=== PATIENT | male | born 1950 | race Caucasian/White ===

== ENCOUNTER 2018-01-14 06:11 | Observation (INO) ==
[2018-01-14] MEDS ORDERED: Aspirin 81 MG TAB.CHEW PO STA (06:33)
--- NOTE | 2018-01-14 06:37 | Emergency Department Note ---
Disposition Clinical Impression: Chest pain, rule out acute myocardial infarction Disposition: Admitted As Inpatient Condition: Fair Referrals: Michael Ramírez MD [Primary Care Provider] - Forms: ED Satisfaction Letter Time of Disposition: 07:23 Chest Pain HPI - General Chief Complaint: ED Chest Pain Stated Complaint: chest pain Time Seen by Provider: 01/14/18 06:19 Source: patient, EMS Mode of arrival: EMS Limitations: no limitations Vital Signs Reviewed: Yes Nursing Notes Reviewed: Yes - History of Present Illness HPI Narrative: Nontoxic-appearing 67-year-old male with a history of diabetes, hyperlipidemia, hypertension, and implanted AICD presents by EMS for evaluation of right sided chest pain that began approximately 11:00 PM yesterday evening. The patient states "I been over to pick something up and got a really sharp pain in my chest ". He states that this pain radiated into the right shoulder, right upper extremity, and right side of his neck. The episode was brief however he states it occurred several additional times throughout the night. He states that each time, it was elicited by exertion while he was doing "my chores". He does state that although his chest pain and right upper extremity pain has resolved, he still has a dull ache in the right side of his neck. This is not worsened with movement or palpation. It is not reproduced with movement or palpation. He does complain of some slight associated dyspnea but denies any associated cough, nausea, vomiting, or diaphoresis. He denies any pain with inspiration or hemoptysis. He denies any fever or chills. Pt complaint: chest pain Onset (ago): hour(s) Duration: other (Nearly resolved) Pain Location: right chest Severity scale (1-10): 2 Quality: aching, dull Pain Radiation: RUE, neck Improves with: nothing Worsens with: nothing Associated symptoms: Reports: dyspnea. Denies: nausea, vomiting, diaphoresis, fever, cough Treatments prior to arrival chest pain: aspirin (81 mg at home prior to EMS arrival.) - Related Data Home Medications Medication Instructions Recorded Confirmed Albuterol Sulfate [Albuterol 2 puff IH Q4HR PRN 12/03/14 10/14/15 Inhaler] Fluticasone Propionate [Flovent 1 puff IH BID 12/03/14 10/14/15 Hfa] Hydrocodone/Acetaminophen [Cromwell 1 tab PO Q6H PRN 12/03/14 10/14/15 5-325 Tablet] Metformin [Glucophage] 1,000 mg PO BID 12/03/14 10/14/15 Potassium Chloride 10 meq PO DAILY 01/31/15 10/14/15 Spironolactone [Aldactone] 25 mg PO DAILY 01/31/15 10/14/15 Atorvastatin [Lipitor] 20 mg PO HS 10/14/15 10/14/15 Gabapentin [Neurontin] 200 mg PO TID 10/14/15 10/14/15 Metoprolol XL (24 HR) Succ [Toprol 25 mg PO DAILY 10/14/15 10/14/15 XL] Triamterene/Hydrochlorothiazid 1 each PO DAILY 10/14/15 10/14/15 [Dyazide 37.5-25 Capsule] Previous Rx's Medication Instructions Recorded Aspirin 81 mg PO DAILY tab.chew 12/09/14 Furosemide [Lasix] 40 mg PO BID #60 tab 12/09/14 Lisinopril [Zestril] 2.5 mg PO DAILY #30 tablet 12/09/14 Cyclobenzaprine [Flexeril] 10 mg PO HS PRN #20 tablet 07/10/15 Magnesium Oxide [Magnesium] 400 mg PO DAILY #30 tablet 01/10/17 Doxycycline 100 mg PO BID #10 capsule 05/21/17 Allergies Allergy/AdvReac Type Severity Reaction Status Date / Time No Known Allergies Allergy Verified 05/21/17 14:58 All systems ED: reviewed and negative except as stated. Review of Systems: As Per HPI Constitutional: Denies: fever, chills, weakness, weight change Eyes: Denies: eye pain, eye discharge, vision change ENT ED: Denies: ear pain, throat pain, dental pain, hearing loss, epistaxis, congestion, dysphagia Cardiovascular: Reports: as per HPI, chest pain. Denies: palpitations, dyspnea on exertion, edema, syncope Respiratory: Reports: as per HPI, dyspnea. Denies: cough, wheezes, hemoptysis, stridor, sputum production Gastrointestinal: Denies: abdominal pain, nausea, vomiting, diarrhea, constipation, hematemesis, melena, hematochezia Genitourinary: Denies: urgency, dysuria, frequency, hematuria Musculoskeletal: Denies: back pain, neck pain, arthralgia, myalgia Integumentary: Denies: rash, abrasion, lesions Neurological: Denies: headache, weakness, numbness, paresthesias, confusion, abnormal gait, vertigo Psychiatric: Denies: anxiety, depression, suicidal thoughts, homicidal thoughts , auditory hallucinations, visual hallucinations Endocrine: Denies: fatigue Hematological/Lymphatic: Denies: easy bleeding, easy bruising Allergic/Immunologic: Denies: facial swelling, urticaria Chest Pain PMH - Past Medical History Medical history: Reports: cardiomyopathy, COPD, coronary artery disease, diabetes, hypertension, other Surgical history: Reports: pacemaker/AICD Psychiatric history: Reports: no psych history - Social History Smoking Status: Current every day smoker Alcohol use: Reports: none Drug use: Reports: none Physical Exam - General Limitations: no limitations General appearance: alert - Head Head exam: atraumatic, normocephalic, normal inspection - Eye Eye exam: Present: normal appearance, PERRL, EOMI. Absent: nystagmus - ENT ENT exam: mucous membranes moist - Neck Neck exam: Present: normal inspection, full ROM, trachea midline. Absent: tenderness - Chest Chest inspection: Present: normal inspection, symmetric chest wall rise. Absent : tenderness - Respiratory Respiratory exam: Present: wheezes (Faint expiratory wheezes noted). Absent: respiratory distress, stridor, accessory muscle use, prolonged expiratory phase - Cardiovascular Cardiovascular exam: Present: regular rate, normal rhythm, normal heart sounds - Abdominal Exam Abdominal exam: Present: soft, Non-Tender, normal bowel sounds - Extremities Exam Extremities exam: Present: normal inspection, full ROM. Absent: tenderness, pedal edema - Neurological Exam Neurological exam: Present: alert, oriented X3 - Psychiatric Psychiatric exam: Present: normal affect, normal mood - Skin Skin exam: Present: warm, dry, intact, normal color. Absent: rash Course - Reevaluation(s) Reevaluation #1: The patient states significant improvement in the residual dull ache in the right side of his neck after the administration of a single nitroglycerin. Additional doses of the nitroglycerin trial were withheld due to soft systolic readings in the 110s. Although the patient stated that the pain was elicited each time by ending over, I have concerns that this is not musculoskeletal in nature, especially given his prior medical history and improvement of his right- sided neck pain with nitroglycerin. He will be admitted to the hospitalist service for ACS rule out. The patient is in agreement with this plan. Time: 07:21 - Consultations Consultation #1: The patient has been accepted by the hospitalist for further observation, workup , and management. Time: 07:32 Vital Signs Temperature 98.6 F 01/14/18 06:16 Pulse Rate 65 01/14/18 06:16 Respiratory Rate 24 01/14/18 06:16 Blood Pressure 148/76 01/14/18 06:16 O2 Sat by Pulse Oximetry 99 01/14/18 06:16 Temperature 98.6 F 01/14/18 06:16 Pulse Rate 60 01/14/18 07:12 Respiratory Rate 18 01/14/18 07:12 Blood Pressure 118/63 01/14/18 07:12 O2 Sat by Pulse Oximetry 97 01/14/18 07:12 Oxygen Delivery Oxygen Delivery Room Air Chest Pain - Medical Records Medical records reviewed: Yes I reviewed the patient's medical records. - Lab Data Lab results reviewed: Yes I reviewed the patient's lab results. Lab results narrative: Lab Results 01/14/18 01/14/18 01/14/18 Range/Units 06:23 06:23 06:23 WBC 10.6 (4.3-11.1) K/mcL RBC 4.16 L (4.19-5.50) M/mcL Hgb 13.5 (12.9-16.9) g/dL Hct 41.7 (37.5-50.1) % MCV 100.2 H (83.0-100.0) fL MCH 32.5 (28.0-33.3) pg MCHC 32.4 (31.6-35.5) g/dL RDW 13.7 (11.5-14.5) % Plt Count 318 (140-400) K/mcL MPV 10.2 (9.4-12.4) fL Immature Gran % 0.7 (0-4) % Seg Neutrophils % 75.9 % Lymphocytes % 13.3 % Monocytes % 6.4 % Eosinophils % 3.2 % Basophils % 0.5 % Neutrophils # 8.1 (1.6-8.9) K/mcL Lymphocytes # 1.4 (0.6-4.6) K/mcL Monocytes # 0.7 (0.0-1.3) K/mcL Eosinophils # 0.3 (0.0-0.6) K/mcL Basophils # 0.1 (0.0-0.2) K/mcL PT 11.6 (9.4-12.1) Seconds INR 1.0 APTT 32.1 (26.0-36.0) Seconds Sodium 142 (136-145) mEq/L Potassium 4.1 (3.5-5.1) mEq/L Chloride 110 H (98-107) mEq/L Carbon Dioxide 25 (23-29) mEq/L BUN 19 (8-23) mg/dL Creatinine 1.18 (0.70-1.30) mg/dL Est GFR ( Amer) > 60 (> 60) Est GFR (Non-Af Amer) > 60 (> 60) BUN/Creatinine Ratio 16 (6-26) Glucose 126 H (70-105) mg/dL Calculated Osmolality 298 (280-300) Calcium 8.9 (8.6-10.3) mg/dL Troponin I < 0.03 (< 0.04) ng/mL Result diagrams: 01/14/18 06:23 01/14/18 06:23 Lab Results 01/14/18 01/14/18 01/14/18 Range/Units 06:23 06:23 06:23 WBC 10.6 (4.3-11.1) K/mcL RBC 4.16 L (4.19-5.50) M/mcL Hgb 13.5 (12.9-16.9) g/dL Hct 41.7 (37.5-50.1) % MCV 100.2 H (83.0-100.0) fL MCH 32.5 (28.0-33.3) pg MCHC 32.4 (31.6-35.5) g/dL RDW 13.7 (11.5-14.5) % Plt Count 318 (140-400) K/mcL MPV 10.2 (9.4-12.4) fL Immature Gran % 0.7 (0-4) % Seg Neutrophils % 75.9 % Lymphocytes % 13.3 % Monocytes % 6.4 % Eosinophils % 3.2 % Basophils % 0.5 % Neutrophils # 8.1 (1.6-8.9) K/mcL Lymphocytes # 1.4 (0.6-4.6) K/mcL Monocytes # 0.7 (0.0-1.3) K/mcL Eosinophils # 0.3 (0.0-0.6) K/mcL Basophils # 0.1 (0.0-0.2) K/mcL PT 11.6 (9.4-12.1) Seconds INR 1.0 APTT 32.1 (26.0-36.0) Seconds Sodium 142 (136-145) mEq/L Potassium 4.1 (3.5-5.1) mEq/L Chloride 110 H (98-107) mEq/L Carbon Dioxide 25 (23-29) mEq/L BUN 19 (8-23) mg/dL Creatinine 1.18 (0.70-1.30) mg/dL Est GFR ( Amer) > 60 (> 60) Est GFR (Non-Af Amer) > 60 (> 60) BUN/Creatinine Ratio 16 (6-26) Glucose 126 H (70-105) mg/dL Calculated Osmolality 298 (280-300) Calcium 8.9 (8.6-10.3) mg/dL Troponin I < 0.03 (< 0.04) ng/mL - Radiology Data Radiology results reviewed: Yes I reviewed the patient's radiology results. Chest X-Ray 01/14/18 06:20 IMPRESSION: No acute cardiopulmonary disease. D/ / Ankit Doan MD / Ankit Doan MD Interpreting Provider: Ankit Doan MD - EKG Data EKG attestation: Yes I reviewed and interpreted this EKG. EKG results narrative: EKG reviewed by Dr. Maravilla as well. EKG shows ventricular rate of 68. [place] interval 138, QRS duration 137, QT/QTc interval 436/454. Heart Score - Score History: Moderately Suspicious EKG: Normal Age: Greater than 65 Risk Factors: Equal/Greater than 3 risk factor or history of atherosclerotic disease Troponin: Less than normal limit HEART Score Total: 5
[2018-01-14 06:41] LABS: Basophils # 0.1 K/mcL (0.0-0.2); Basophils % 0.5 %; Eosinophils # 0.3 K/mcL (0.0-0.6); Eosinophils % 3.2 %; Hematocrit 41.7 % (37.5-50.1); Hemoglobin 13.5 g/dL (12.9-16.9); Immature Granulocytes % 0.7 % (0-4); Lymphocytes # 1.4 K/mcL (0.6-4.6); Lymphocytes % 13.3 %; Mean Corpuscular HGB Conc 32.4 g/dL (31.6-35.5); Mean Corpuscular Hemoglobin 32.5 pg (28.0-33.3); Mean Corpuscular Volume 100.2 fL (83.0-100.0); Mean Platelet Volume 10.2 fL (9.4-12.4); Monocytes # 0.7 K/mcL (0.0-1.3); Monocytes % 6.4 %; Neutrophils # 8.1 K/mcL (1.6-8.9); Platelet Count 318 K/mcL (140-400); Red Blood Count 4.16 M/mcL (4.19-5.50); Red Cell Distribution Width 13.7 % (11.5-14.5); Segmented Neutrophils % 75.9 %
[2018-01-14] MEDS ORDERED: Nitroglycerin 0.4 MG TAB.SUBL SL PRN ×2 (06:42→07:33)
[2018-01-14 06:52] LABS: Prothrombin Time 11.6 Seconds (9.4-12.1)
[2018-01-14 06:55] LABS: Activated Partial Thrombo Time 32.1 Seconds (26.0-36.0); BUN/Creatinine Ratio 16 (6-26); Blood Urea Nitrogen 19 mg/dL (8-23); Calcium 8.9 mg/dL (8.6-10.3); Carbon Dioxide 25 mEq/L (23-29); Chloride 110 mEq/L (98-107); Glucose 126 mg/dL (70-105); Osmolality,Calculated 298 (280-300); Potassium 4.1 mEq/L (3.5-5.1); Sodium 142 mEq/L (136-145); Troponin I < 0.03 ng/mL (< 0.04); eGFR For Non-African Americans > 60 (> 60)
--- NOTE | 2018-01-14 07:22 | Emergency Department Note ---
Disposition Clinical Impression: Chest pain, rule out acute myocardial infarction Disposition: Admitted As Inpatient Condition: Fair General Adult HPI - General Chief complaint: ED Chest Pain Stated complaint: chest pain Time Seen by Provider: 01/14/18 06:19 Source: patient, EMS Mode of arrival: EMS Limitations: no limitations - History of Present Illness Pain Scale: 1 - Related Data Home Medications Medication Instructions Recorded Confirmed Albuterol Sulfate [Ventolin Hfa] 2 puff IH Q4H PRN 01/14/18 01/14/18 Amiodarone [Cordarone] 200 mg PO BID 01/14/18 01/14/18 Aspirin [Adult Aspirin] 81 mg PO DAILY 01/14/18 01/14/18 Gabapentin [Neurontin] 100 mg PO TID 01/14/18 01/14/18 Lisinopril 2.5 mg PO DAILY 01/14/18 01/14/18 Tiotropium [Spiriva] 18 mcg IH DAILY 01/14/18 01/14/18 Triamterene/Hydrochlorothiazid 1 cap PO DAILY 01/14/18 01/14/18 [Dyazide 37.5-25 Capsule] Allergies Allergy/AdvReac Type Severity Reaction Status Date / Time No Known Allergies Allergy Verified 05/21/17 14:58 Constitutional: Denies: fever, chills, weakness, weight change Eyes: Denies: eye pain, eye discharge, vision change ENT ED: Denies: ear pain, throat pain, dental pain, hearing loss, epistaxis, congestion, dysphagia Cardiovascular: Reports: as per HPI, chest pain. Denies: palpitations, dyspnea on exertion, edema, syncope Respiratory: Reports: as per HPI, dyspnea. Denies: cough, wheezes, hemoptysis, stridor, sputum production Gastrointestinal: Denies: abdominal pain, nausea, vomiting, diarrhea, constipation, hematemesis, melena, hematochezia Genitourinary: Denies: urgency, dysuria, frequency, hematuria Musculoskeletal: Denies: back pain, neck pain, arthralgia, myalgia Integumentary: Denies: rash, abrasion, lesions Neurological: Denies: headache, weakness, numbness, paresthesias, confusion, abnormal gait, vertigo Psychiatric: Denies: anxiety, depression, suicidal thoughts, homicidal thoughts , auditory hallucinations, visual hallucinations Endocrine: Denies: fatigue Hematological/Lymphatic: Denies: easy bleeding, easy bruising Allergic/Immunologic: Denies: facial swelling, urticaria Past Medical History - Past Medical History Medical history: Reports: cardiomyopathy, COPD, coronary artery disease, diabetes, hypertension, other Surgical history: Reports: pacemaker/AICD Psychiatric history: Reports: no psych history - Social History Smoking Status: Current every day smoker Smokeless Tobacco Status: No Alcohol use: Reports: none Drug use: Reports: none Physical Exam - General Limitations: no limitations General appearance: alert Course Vital Signs Temperature 98.6 F 01/14/18 06:16 Pulse Rate 65 01/14/18 06:16 Respiratory Rate 24 01/14/18 06:16 Blood Pressure 148/76 01/14/18 06:16 O2 Sat by Pulse Oximetry 99 01/14/18 06:16 Temperature 97.7 F 01/14/18 15:29 Pulse Rate 63 01/14/18 15:29 Respiratory Rate 14 01/14/18 15:29 Blood Pressure 123/73 01/14/18 15:29 O2 Sat by Pulse Oximetry 99 01/14/18 15:29 Oxygen Delivery Oxygen Delivery Room Air Medical Decision Making - Lab Data Result diagrams: 01/14/18 06:23 01/14/18 06:23 Lab Results 01/14/18 01/14/18 01/14/18 Range/Units 06:23 06:23 06:23 WBC 10.6 (4.3-11.1) K/mcL RBC 4.16 L (4.19-5.50) M/mcL Hgb 13.5 (12.9-16.9) g/dL Hct 41.7 (37.5-50.1) % MCV 100.2 H (83.0-100.0) fL MCH 32.5 (28.0-33.3) pg MCHC 32.4 (31.6-35.5) g/dL RDW 13.7 (11.5-14.5) % Plt Count 318 (140-400) K/mcL MPV 10.2 (9.4-12.4) fL Immature Gran % 0.7 (0-4) % Seg Neutrophils % 75.9 % Lymphocytes % 13.3 % Monocytes % 6.4 % Eosinophils % 3.2 % Basophils % 0.5 % Neutrophils # 8.1 (1.6-8.9) K/mcL Lymphocytes # 1.4 (0.6-4.6) K/mcL Monocytes # 0.7 (0.0-1.3) K/mcL Eosinophils # 0.3 (0.0-0.6) K/mcL Basophils # 0.1 (0.0-0.2) K/mcL PT 11.6 (9.4-12.1) Seconds INR 1.0 APTT 32.1 (26.0-36.0) Seconds Sodium 142 (136-145) mEq/L Potassium 4.1 (3.5-5.1) mEq/L Chloride 110 H (98-107) mEq/L Carbon Dioxide 25 (23-29) mEq/L BUN 19 (8-23) mg/dL Creatinine 1.18 (0.70-1.30) mg/dL Est GFR ( Amer) > 60 (> 60) Est GFR (Non-Af Amer) > 60 (> 60) BUN/Creatinine Ratio 16 (6-26) Glucose 126 H (70-105) mg/dL Calculated Osmolality 298 (280-300) Calcium 8.9 (8.6-10.3) mg/dL Troponin I < 0.03 (< 0.04) ng/mL Attestation Statement - Attestation Attestation: For this encounter, I have reviewed the [employer] or PA documentation, treatment plan, and medical decision making; and I have had face to face time with this patient. [id number] time provided Patient presents with chest pain. Appears in no acute distress on exam. EKG reviewed by me showing a paced rhythm. Labs reviewed by me. Stable for admission to the medicine service
[2018-01-14] MEDS ORDERED: Acetaminophen 325 MG TABLET PO PRN (07:29)
[2018-01-14] MEDS ORDERED: *HR* OxyCODONE Immed Rel 5 MG TABLET PO PRN (07:29)
[2018-01-14] MEDS ORDERED: *HR* HYDROcodone/Acet 5/325 mg TABLET PO PRN (07:29)
[2018-01-14] MEDS ORDERED: Naloxone 0.4 MG/ML INJ IVP PRN (07:29)
--- NOTE | 2018-01-14 07:36 | Internal Med History&Physical ---
Date of Encounter: 01/14/18 Time of Encounter: 08:00 Internal Medicine - H&P: HPI Chief complaint: Chest pain Admitted From: Home History of present illness: Mr. Dumont is a 67 year old male with past medical history of diabetes, hypertension, hyperlipidemia, nonischemic cardiomyopathy with EF 25% status post ICD, non-obstructive CAD on [facility] 2014, resented to the ED with chest pain that started last night. Parasternal in location, 8/10, intermittent, worse on exertion, relieved with nitroglycerin. He was experiencing intermittent episodes as such for the last 4-5 days. Denies any shortness of breath, diaphoresis, cough, sputum production, fevers/chills, or nausea/vomiting. Denies /GI symptoms. In the ED, he was afebrile and hemodynamically stable. Nitroglycerin brought on his chest pain to 1/10. Labs were unremarkable with negative troponin, BMP, and white blood cell count. EKG shows ventricular paced rhythm. Chest x-ray did not show any acute cardiopulmonary process. He was given 243mg of ASA and admitted for further management. Past Med Surg Social Fam HX - Past Medical History Attestation: Yes The following information was validated with the patient. Medical history: cardiomyopathy, COPD, coronary artery disease, diabetes, hypertension, other Additional medical history: cellulitis BLE, back problems Psychiatric history: no psych history - Past Surgical History Surgical History: pacemaker/AICD Additional surgical history: heart cath, defibrillator - Social History Smoking Status: Current every day smoker Smokeless Tobacco Status: No Alcohol use: none Drug use: none - Family History Father Adopted: No Living Status: Hx Family Cardiac Disorders: Yes (htn, heart trouble, pacemaker) Hx Family Respiratory Disorders: Yes (asthma, COPD) Hx Family Cancer: No Hx Family GI Disorders: No Hx Family Endocrine Disorder: Yes (goiter) Hx Family Neuromuscular Disorders: No Hx Family Neurologic Disorders: No Hx Family HEENT Disorders: No Hx Family Autoimmune Disorders: No Mother Adopted: No Family Member Ethnicity: Non- Living Status: Hx Family Cardiac Disorders: Yes Hx Family Respiratory Disorders: No Hx Family Cancer: No Hx Family GI Disorders: No Hx Family Endocrine Disorder: Yes Hx Family Neuromuscular Disorders: Yes Hx Family Neurologic Disorders: No Hx Family HEENT Disorders: No Hx Family Autoimmune Disorders: No Internal Medicine - H&P: Meds RX: Albuterol Sulfate [Albuterol Inhaler] 2 puff IH Q4HR PRN 12/03/14 [History] RX: Fluticasone Propionate [Flovent Hfa] 1 puff IH BID 12/03/14 [History] RX: Hydrocodone/Acetaminophen [Nabb 5-325 Tablet] 1 tab PO Q6H PRN 12/03/14 [ History] RX: Metformin [Glucophage] 1,000 mg PO BID 12/03/14 [History] RX: Aspirin 81 mg PO DAILY tab.chew 12/09/14 [Rx] RX: Furosemide [Lasix] 40 mg PO BID #60 tab 12/09/14 [Rx] RX: Lisinopril [Zestril] 2.5 mg PO DAILY #30 tablet 12/09/14 [Rx] Potassium Chloride 10 meq PO DAILY 01/31/15 [History] RX: Spironolactone [Aldactone] 25 mg PO DAILY 01/31/15 [History] RX: Cyclobenzaprine [Flexeril] 10 mg PO HS PRN #20 tablet 07/10/15 [Rx] RX: Atorvastatin [Lipitor] 20 mg PO HS 10/14/15 [History] RX: Gabapentin [Neurontin] 200 mg PO TID 10/14/15 [History] RX: Metoprolol XL (24 HR) Succ [Toprol XL] 25 mg PO DAILY 10/14/15 [History] RX: Triamterene/Hydrochlorothiazid [Dyazide 37.5-25 Capsule] 1 each PO DAILY 02/18 [History] Magnesium Oxide [Magnesium] 400 mg PO DAILY #30 tablet 01/10/17 [Rx] RX: Doxycycline 100 mg PO BID #10 capsule 05/21/17 [Rx] 3 Allergy/AdvReac Type Severity Reaction Status Date / Time No Known Allergies Allergy Verified 05/21/17 14:58 All Systems PM: A 10-system review of systems was performed and is negative for pertinent findings except as documented above in the HPI. - Constitutional Vitals: Temp Pulse Resp BP Pulse Ox 98.6 F 60 18 118/63 97 01/14/18 06:16 01/14/18 07:12 01/14/18 07:12 01/14/18 07:12 01/14/18 07:12 Exam: General: Alert and oriented, not in acute distress. HEENT:EOM, pupils equal, round and reactive. Cardiovascular:Normal S1 & S2, No JVD. Pulse regular. No chest wall tenderness Lungs: clear to auscultation, no wheezes/rales Abdomen:Soft, non-tender, no rigidity. Extremities:No deformity or swelling Neurological:Normal cognition and motor skills. Non-focal Skin:Normal color, no rash, no lesions. Pulses:Carotid and radial pulses normal +2. Rest of the physical exam is non contributory Internal Med - H&P Results - Labs CBC & Chem 7: 01/14/18 06:23 01/14/18 06:23 Labs: Short CBC 01/14/18 Range/Units 06:23 WBC 10.6 (4.3-11.1) K/mcL Hgb 13.5 (12.9-16.9) g/dL Hct 41.7 (37.5-50.1) % Plt Count 318 (140-400) K/mcL Neutrophils # 8.1 (1.6-8.9) K/mcL BMP 01/14/18 06:23 Sodium 142 Potassium 4.1 Chloride 110 H Carbon Dioxide 25 BUN 19 Creatinine 1.18 Glucose 126 H Calcium 8.9 Cardiac Enzymes 01/14/18 Range/Units 06:23 Troponin I < 0.03 (< 0.04) ng/mL - Impressions ITS Impressions Chest X-Ray 01/14/18 06:20 IMPRESSION: No acute cardiopulmonary disease. D/ / Ankit Doan MD / Ankit Doan MD Interpreting Provider: Ankit Doan MD - Assessment and plan (1) Chest pain, rule out acute myocardial infarction Current Visit: Yes Status: Acute Assessment and plan: Atypical chest pain in a patient with known CAD and cardiomyopathy with EF 25% Additional risk factors including history of smoking, diabetes, hypertension 1st trop -ve, EKG V-paced rhythm [facility] 12/2014 result as below received a total of 324mg of ASA 1 dose of nitro in the ED, pain down to 1 continue ASA, statin trend troponin stress test (2) CAD (coronary artery disease) Current Visit: No Status: Acute Assessment and plan: Left heart catheterization in December 2014 showed 30% stenosis in proximal LAD , 20% stenosis in proximal circumflex, and 40% stenosis in the mid RCA. given 243mg of ASA in the ED in addition to his home dose of 81mg daily stress test as above resume home meds Qualifiers: Coronary Disease-Associated Artery/Lesion type: [place] artery [place] vs. 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 Diabetes mellitus complication status: with unspecified complications Qualified Code(s): E11.8 - Type 2 diabetes mellitus with unspecified complications (5) COPD (chronic obstructive pulmonary disease) Current Visit: No Status: Chronic Assessment and plan: Resume home inhalers Qualifiers: COPD type: unspecified COPD Qualified Code(s): J44.9 - Chronic obstructive pulmonary disease, unspecified (6) DVT prophylaxis Current Visit: No Status: Acute Assessment and plan: SQ heparin - Time Spent With Patient Total time spent is greater than 50% in coordination of care (as documented) at patient's floor/unit and/or counseling patient:
[2018-01-14] MEDS ORDERED: Ipratropium/Albuterol Neb 3 ML IH PRN (07:38)
[2018-01-14] MEDS ORDERED: Dextrose Gel 15 GM/37.5 ML TUBE PO PRN ×2 (07:47)
[2018-01-14] MEDS ORDERED: *HR* Dextrose 50 % in Water (Syg) 50 ML SYRINGE IVP PRN (07:47)
[2018-01-14] MEDS ORDERED: D5% in Water 1,000 ML IVC PRN (07:47)
[2018-01-14] MEDS: Gabapentin 100 MG CAPSULE PO SCH ×3 (12:03→20:49)
[2018-01-14] MEDS: *HR* Amiodarone 200 MG TABLET PO SCH ×2 (12:04→20:49)
[2018-01-14] MEDS: Insulin LISPRO 300 UNITS/3 ML VIAL SQ SCH ×2 (12:05→16:59)
[2018-01-14] MEDS: *HR* Heparin 5,000 UNIT/ML VIAL SQ SCH (17:17)
[2018-01-15] MEDS: Insulin LISPRO 300 UNITS/3 ML VIAL SQ SCH ×3 (00:25→12:42)
[2018-01-15 05:10] LABS: Hematocrit 38.9 % (37.5-50.1); Hemoglobin 12.5 g/dL (12.9-16.9); Mean Corpuscular HGB Conc 32.1 g/dL (31.6-35.5); Mean Corpuscular Hemoglobin 31.9 pg (28.0-33.3); Mean Corpuscular Volume 99.2 fL (83.0-100.0); Mean Platelet Volume 10.4 fL (9.4-12.4); Platelet Count 278 K/mcL (140-400); Red Blood Count 3.92 M/mcL (4.19-5.50); Red Cell Distribution Width 13.8 % (11.5-14.5)
[2018-01-15 05:26] LABS: BUN/Creatinine Ratio 16 (6-26); Blood Urea Nitrogen 18 mg/dL (8-23); Calcium 8.8 mg/dL (8.6-10.3); Carbon Dioxide 28 mEq/L (23-29); Chloride 107 mEq/L (98-107); Glucose 132 mg/dL (70-105); Magnesium 1.6 mg/dL (1.6-2.6); Osmolality,Calculated 294 (280-300); Potassium 4.1 mEq/L (3.5-5.1); Sodium 140 mEq/L (136-145); eGFR For Non-African Americans > 60 (> 60)
[2018-01-15] MEDS: *HR* Heparin 5,000 UNIT/ML VIAL SQ SCH (05:47)
[2018-01-15] MEDS ORDERED: Regadenoson 0.4 MG/5 ML SYRINGE IVP ONE (07:05)
[2018-01-15] MEDS ORDERED: Aspirin Enteric Coated 81 MG Tablet PO SCH (09:00)
--- NOTE | 2018-01-15 09:33 | Electrocardiograph Report ---
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
[2018-01-15] MEDS: Gabapentin 100 MG CAPSULE PO SCH (09:38)
[2018-01-15] MEDS: *HR* Amiodarone 200 MG TABLET PO SCH (09:38)
[2018-01-15 11:39] VITALS: BP 118/68
--- NOTE | 2018-01-15 13:35 | Discharge Summary ---
- NOTES TO OUTPATIENT PROVIDER Notes to Outpatient Provider: Patient with history of cardiomyopathy and chronic congestive heart failure was hospitalized here with chest pain. His troponins were trended and they were negative. Patient then underwent cardiac stress test today which did not show any signs of reversible ischemia. He is currently chest pain-free. He stable to be discharged for outpatient follow-up with his primary care provider and mallet cutter. He has appointment scheduled for early next week. We will start patient on 30 mg of Imdur. Orders not resulted at time of discharge: Pending orders 01/14/18 08:05 NM sheldon perf SPECT multi [NM] Routine Date of Encounter: 01/15/18 Time of Encounter: 13:32 - Discharge Diagnosis (1) Chest pain, rule out acute myocardial infarction Priority: Primary Status: Acute (2) DVT prophylaxis Priority: Secondary Status: Acute (3) COPD (chronic obstructive pulmonary disease) Priority: Secondary Status: Chronic Qualifiers: COPD type: unspecified COPD Qualified Code(s): J44.9 - Chronic obstructive pulmonary disease, unspecified (4) Diabetes Priority: Secondary Status: Chronic Qualifiers: Diabetes mellitus type: type 2 Diabetes mellitus rn long term care insulin use: without half-way use Diabetes mellitus complication status: with unspecified complications Qualified Code(s): E11.8 - Type 2 diabetes mellitus with unspecified complications (5) CAD (coronary artery disease) Priority: Secondary Status: Acute Qualifiers: Coronary Disease-Associated Artery/Lesion type: [place] artery [place] vs. transplanted heart: [place] heart Associated angina: angina presence unspecified Qualified Code(s): I25.10 - Atherosclerotic heart disease of [place] coronary artery without angina pectoris (6) Chronic systolic (congestive) heart failure Priority: Secondary Status: Chronic Hospital course: Mr. Dumont is a 67 year old male Patient with history of cardiomyopathy, coronary artery disease, COPD, diabetes and hypertension, and chronic congestive heart failure was hospitalized here with chest pain. His troponins were trended and they were negative. Patient then underwent cardiac stress test today which did not show any signs of reversible ischemia. He is currently chest pain-free. He stable to be discharged for outpatient follow-up with his primary care provider and mallet cutter. He has appointment scheduled for early next week. We will start patient on 30 mg of Imdur. Discharge discussed with: patient, nurse - Time Spent with Patient Total time spent providing and/or coordinating discharge services: Less than 30 minutes (25 min) - Discharge Medications Prescriptions: Isosorbide MONOnitrate (24 HR) [Imdur] 30 mg PO DAILY #30 tab.er.24h Home Medications: Albuterol Sulfate [Ventolin Hfa] 2 puff IH Q4H PRN 01/14/18 [History] Amiodarone [Cordarone] 200 mg PO BID 01/14/18 [History] Aspirin [Adult Aspirin] 81 mg PO DAILY 01/14/18 [History] Gabapentin [Neurontin] 100 mg PO TID 01/14/18 [History] Lisinopril 2.5 mg PO DAILY 01/14/18 [History] Tiotropium [Spiriva] 18 mcg IH DAILY 01/14/18 [History] Triamterene/Hydrochlorothiazid [Dyazide 37.5-25 Capsule] 1 cap PO DAILY [History] Isosorbide MONOnitrate (24 HR) [Imdur] 30 mg PO DAILY #30 tab.er.24h 01/15/18 [ Rx] Allergies/Adverse Reactions: 3 Allergy/AdvReac Type Severity Reaction Status Date / Time No Known Allergies Allergy Verified 05/21/17 14:58 Date of admission: 01/14/18 07:44 Primary care physician: Michael Ramírez MD Discharging clinician: Marta Ramires Anticipated date of discharge: 01/15/18 - Constitutional Vitals: Temp Pulse Resp BP Pulse Ox 97.5 F L 61 16 118/68 95 01/15/18 11:30 01/15/18 11:30 01/15/18 11:30 01/15/18 11:30 01/15/18 11:30 General appearance: Present: cooperative, A&O X 3, answers questions appropriately Exam: . - Respiratory Respiratory exam: Present: prolonged expiratory phase, wheezes. Absent: accessory muscle use, rales, rhonchi - Cardiovascular Cardiovascular exam: Present: RRR, +S1, +S2. Absent: diastolic murmur, gallop, rubs, systolic murmur - GI/Abdominal GI/Abdominal exam: Present: normal bowel sounds, soft, no peritoneal signs. Absent: distended, tenderness - Patient Status Disposition: Home, Self-Care Condition: Good Functional capacity at discharge: independent ambulation Overall status at discharge: patient is progressing back to baseline - Discharge Instructions Instructions: Isosorbide Mononitrate (By mouth), Chest Pain (DC) Follow Up With: Aleksandr Silva MD [Partnered Physician] - 01/18/18 3:00 pm Michael Ramírez MD [Primary Care Provider] - 01/17/18 8:30 am () - Diet and Activity Activity: increase activity as tolerated Diet: low fat, low cholesterol, low salt diet
--- NOTE | 2018-01-17 10:24 | Physician Discharge Referral ---
Home Health/Hosp Referral Info Transfer to: Home Health Provider in Charge Post Discharge: PCP - Diagnosis (1) Chest pain, rule out acute myocardial infarction Priority: Primary Status: Acute (2) DVT prophylaxis Priority: Secondary Status: Acute (3) COPD (chronic obstructive pulmonary disease) Priority: Secondary Status: Chronic (4) Diabetes Priority: Secondary Status: Chronic (5) CAD (coronary artery disease) Priority: Secondary Status: Acute (6) Chronic systolic (congestive) heart failure Priority: Secondary Status: Chronic - Respiratory Orders Smoking Cessation: Smoking cessation has been advised. For more information, call the [place] Tobacco Quit Line at 8-554-LLOL-NOW. - Diet/Nutrition Diet/Nutrition Orders: Cardiac - Activity Activity Orders: Walker - Services Needed Following services are medically necessary services: Nursing, Physical Therapy, Occupational Therapy - Transfer Medications Prescriptions: Isosorbide MONOnitrate (24 HR) [Imdur] 30 mg PO DAILY #30 tab.er.24h Home Medications: Albuterol Sulfate [Ventolin Hfa] 2 puff IH Q4H PRN 01/14/18 [History] Amiodarone [Cordarone] 200 mg PO BID 01/14/18 [History] Aspirin [Adult Aspirin] 81 mg PO DAILY 01/14/18 [History] Gabapentin [Neurontin] 100 mg PO TID 01/14/18 [History] Lisinopril 2.5 mg PO DAILY 01/14/18 [History] Tiotropium [Spiriva] 18 mcg IH DAILY 01/14/18 [History] Triamterene/Hydrochlorothiazid [Dyazide 37.5-25 Capsule] 1 cap PO DAILY [History] Isosorbide MONOnitrate (24 HR) [Imdur] 30 mg PO DAILY #30 tab.er.24h 01/15/18 [ Rx] Allergies/Adverse Reactions: 3 Allergy/AdvReac Type Severity Reaction Status Date / Time No Known Allergies Allergy Verified 05/21/17 14:58 Certification: Further, I certify that my clinical findings support that this patient is homebound (i.e. absences from home require considerable and taxing effort and are for medical reasons or latter day services or infrequently or short duration when for other reasons) because: Homebound Reason: Patient requires assistance of a person or device to safely leave home Attestation: My signature below is to certify that this patient is under my care and that I, or nurse practitioner, or a physician's assistant brand manager working with me, has a face-to -face encounter with this patient.
== END 2018-01-15 15:02 | disposition home or self-care (01) ==
LOC: EMEROOARM 06:11 → 2SOUTHHOLD 06:11 → SUATTDRO 07:44 → 2SOUTHHOLD 08:15 → 3BNU 17:40
PROVIDERS: ADMIT Internal Medicine; ATTEND Internal Medicine

== ENCOUNTER 2018-09-02 21:28 | Inpatient (IN) ==
[2018-09-02] MEDS ORDERED: Amiodarone Premix 360 MG/200 ML BAG IVC ONE (21:33)
--- NOTE | 2018-09-02 21:37 | Emergency Department Note ---
Disposition Clinical Impression: Ventricular tachycardia, Defibrillator discharge, Noncompliance with medication regimen Disposition: Admitted As Inpatient Condition: Undetermined Referrals: NONE,PCP [Primary Care Provider] - Forms: ED Satisfaction Letter Time of Disposition: 23:34 General Adult HPI - General Chief complaint: ED Arrhythmia/Palpitations Stated complaint: "pace maker firing" Time Seen by Provider: 09/02/18 21:32 Source: patient, EMS Mode of arrival: EMS Limitations: no limitations Nursing Notes Reviewed: Yes Vital Signs Reviewed: Yes - History of Present Illness HPI Narrative: 67-year-old male with history of hypertension, hyperlipidemia, pacemaker with a defibrillator who arrives to the emergency department complaining of his defibrillator going off at least 5-7 times today. Once in route to the hospital. We 7 multiple rounds of ventricular tachycardia in route noted by EMS. The patient denies any associated complaints with it. He does state however that he has been out of his amiodarone since April of this year and recently started taking it 2 days ago. The patient denies any true abdominal pa in, difficulty breathing. Patient does state though just prior to when he has his defibrillator fire he has an episode of chest pain, back pain and then developed headache. This is happened at least 5-7 times today. He denies any other complaints. He is resting comfortably in the room speaking full sentences. - Related Data Home Medications Medication Instructions Recorded Confirmed Albuterol Sulfate [Ventolin Hfa] 2 puff IH Q4H PRN 01/14/18 09/02/18 Amiodarone [Cordarone] 200 mg PO BID 01/14/18 09/02/18 Aspirin [Adult Aspirin] 81 mg PO DAILY 01/14/18 09/02/18 Gabapentin [Neurontin] 100 mg PO DAILY 01/14/18 09/02/18 Tiotropium [Spiriva] 18 mcg IH DAILY 01/14/18 09/02/18 Atorvastatin [Lipitor] 40 mg PO DAILY 08/17/18 09/02/18 Lisinopril [Zestril] 2.5 mg PO DAILY 08/17/18 09/02/18 Metformin HCl [Metformin ER 500 mg PO BID 08/17/18 09/02/18 Osmotic] Metoprolol Succinate [Toprol Xl] 50 mg PO DAILY 08/17/18 09/02/18 Mometasone Furoate [Asmanex Hfa] 2 puff PO BID 08/17/18 09/02/18 Previous Rx's Medication Instructions Recorded Isosorbide MONOnitrate (24 HR) 30 mg PO DAILY #30 tab.er.24h 01/15/18 [Imdur] hydroCHLOROthiazide 25 mg PO DAILY #30 tablet 08/18/18 [Hydrochlorothiazide] Allergies Allergy/AdvReac Type Severity Reaction Status Date / Time No Known Allergies Allergy Verified 08/17/18 09:27 All systems ED: reviewed and negative except as stated. Constitutional: Denies: fever, chills, weakness ENT ED: Denies: dysphagia Cardiovascular: Reports: palpitations. Denies: chest pain, dyspnea on exertion, edema, syncope Respiratory: Denies: cough, dyspnea, sputum production Gastrointestinal: Denies: abdominal pain Genitourinary: Denies: urgency, dysuria Musculoskeletal: Denies: back pain Integumentary: Denies: rash Neurological: Denies: headache Past Medical History - Past Medical History Attestation: Yes The following information was validated with the patient. Source: patient, old records reviewed Medical history: Reports: cardiomyopathy, COPD, coronary artery disease, diabetes, hyperlipidemia, hypertension, other Surgical history: Reports: AICD, pacemaker Psychiatric history: Reports: no psych history - Social History Smoking Status: Current every day smoker Smokeless Tobacco Status: No Alcohol use: Reports: none Drug use: Reports: none Physical Exam - General Limitations: no limitations General appearance: alert, in no apparent distress - Head Head exam: atraumatic, normocephalic, normal inspection - Eye Eye exam: Present: normal appearance, PERRL, EOMI - ENT ENT exam: normal exam, normal oropharynx, mucous membranes moist - Neck Neck exam: Present: normal inspection, full ROM, trachea midline - Chest Chest inspection: Present: normal inspection, symmetric chest wall rise - Respiratory Respiratory exam: Present: normal lung sounds bilaterally - Cardiovascular Cardiovascular exam: Present: regular rate, normal rhythm, normal heart sounds - Abdominal Exam Abdominal exam: Present: soft, Non-Tender. Absent: tenderness, distention, guarding, rebound, rigidity - Extremities Exam Extremities exam: Present: normal inspection, full ROM, normal capillary refill. Absent: tenderness, pedal edema - Neurological Exam Neurological exam: Present: alert, oriented X3 - Skin Skin exam: Present: warm, dry, intact, normal color Course Vital Signs Temperature 98.2 F 09/02/18 21:47 Pulse Rate 69 09/02/18 21:47 Respiratory Rate 16 09/02/18 21:47 Blood Pressure 118/67 09/02/18 21:47 O2 Sat by Pulse Oximetry 98 09/02/18 21:47 Temperature 98.2 F 09/02/18 21:47 Pulse Rate 69 09/02/18 21:47 Respiratory Rate 16 09/02/18 21:47 Blood Pressure 118/67 09/02/18 21:47 O2 Sat by Pulse Oximetry 98 09/02/18 21:47 Oxygen Delivery Oxygen Delivery Room Air Medical Decision Making - MDM Narrative Medical decision making narrative: Patient in the emergency department room some mild electrolyte abnormalities. Patient's chest x-ray is within normal limits with the exception of cardiomegaly which is the patient. No obvious pulmonary effusions or pleural edema noted. The patient had his pacemaker that was interrogated here in the ED. It did demonstrate up to 11 episodes of ventricular tachycardia with the last one lasting roughly 1 hour. The patient has not received any shocks from his defibrillator but has had demand pacing over pacing of the patient's ventricular rhythm. The patient will be admitted to the hospital at this time. He was given an amiodarone bolus and placed on amiodarone drip here in the emergency department secondary to patient's noncompliance with his amiodarone and episodes of ventricular tachycardia even witnessed by EMS. He has had no episodes here in the emergency department. She was troponins within normal limits. The patient will be admitted to the hospital this time for further workup and care. Patient made aware and agrees to plan. No further questions or concerns noted. Patient accepted by Dr. Torres. - Medical Records Medical records reviewed: Yes I reviewed the patient's medical records. - Lab Data Lab results reviewed: Yes I reviewed the patient's lab results. Result diagrams: 09/02/18 21:33 09/02/18 21:33 Lab Results 09/02/18 09/02/18 09/02/18 Range/Units 21:33 21:33 21:33 WBC 9.6 (4.3-11.1) K/mcL RBC 4.17 L (4.19-5.50) M/mcL Hgb 13.3 (12.9-16.9) g/dL Hct 40.2 (37.5-50.1) % MCV 96.4 (83.0-100.0) fL MCH 31.9 (28.0-33.3) pg MCHC 33.1 (31.6-35.5) g/dL RDW 13.2 (11.5-14.5) % Plt Count 344 (140-400) K/mcL MPV 10.2 (9.4-12.4) fL Immature Gran % 0.5 (0-4) % Seg Neutrophils % 81.4 % Lymphocytes % 9.9 % Monocytes % 6.1 % Eosinophils % 1.5 % Basophils % 0.6 % Neutrophils # 7.8 (1.6-8.9) K/mcL Lymphocytes # 1.0 (0.6-4.6) K/mcL Monocytes # 0.6 (0.0-1.3) K/mcL Eosinophils # 0.1 (0.0-0.6) K/mcL Basophils # 0.1 (0.0-0.2) K/mcL PT (9.4-12.1) Seconds INR APTT (26.0-36.0) Seconds Sodium 138 (136-145) mEq/L Potassium 3.3 L (3.5-5.1) mEq/L Chloride 101 (98-107) mEq/L Carbon Dioxide 27 (23-29) mEq/L BUN 25 H (8-23) mg/dL Creatinine 1.27 (0.70-1.30) mg/dL Est GFR ( Amer) > 60 (> 60) Est GFR (Non-Af Amer) 56 L (> 60) BUN/Creatinine Ratio 20 (6-26) Glucose 186 H (70-105) mg/dL Calculated Osmolality 295 (280-300) Calcium 8.9 (8.6-10.3) mg/dL Magnesium 1.5 L (1.6-2.6) mg/dL Troponin I < 0.03 (< 0.04) ng/mL TSH 3.095 (0.340-5.600) mcIU/mL Specimen Rejected Volume 09/02/18 Range/Units 22:24 WBC (4.3-11.1) K/mcL RBC (4.19-5.50) M/mcL Hgb (12.9-16.9) g/dL Hct (37.5-50.1) % MCV (83.0-100.0) fL MCH (28.0-33.3) pg MCHC (31.6-35.5) g/dL RDW (11.5-14.5) % Plt Count (140-400) K/mcL MPV (9.4-12.4) fL Immature Gran % (0-4) % Seg Neutrophils % % Lymphocytes % % Monocytes % % Eosinophils % % Basophils % % Neutrophils # (1.6-8.9) K/mcL Lymphocytes # (0.6-4.6) K/mcL Monocytes # (0.0-1.3) K/mcL Eosinophils # (0.0-0.6) K/mcL Basophils # (0.0-0.2) K/mcL PT 12.3 H (9.4-12.1) Seconds INR 1.1 APTT 34.5 (26.0-36.0) Seconds Sodium (136-145) mEq/L Potassium (3.5-5.1) mEq/L Chloride (98-107) mEq/L Carbon Dioxide (23-29) mEq/L BUN (8-23) mg/dL Creatinine (0.70-1.30) mg/dL Est GFR ( Amer) (> 60) Est GFR (Non-Af Amer) (> 60) BUN/Creatinine Ratio (6-26) Glucose (70-105) mg/dL Calculated Osmolality (280-300) Calcium (8.6-10.3) mg/dL Magnesium (1.6-2.6) mg/dL Troponin I (< 0.04) ng/mL TSH (0.340-5.600) mcIU/mL Specimen Rejected - Radiology Data Radiology results reviewed: Yes I reviewed the patient's radiology results. Chest X-Ray 09/02/18 21:33 IMPRESSION: Stable portable study. D/ / Bina Plummer Cha, MD / Bina Plummer Cha, MD Interpreting Provider: Bina Plummer Cha, MD - EKG Data EKG #1 EKG attestation: Yes I reviewed and interpreted this EKG. EKG results narrative: Heart rate 62 beats for minute ventricular paced rhythm. No ST elevation or ST depression noted in no acute changes in morphology to EKG from 08/17/2018.
[2018-09-02] MEDS ORDERED: Amiodarone Premix 150 MG/100 ML BAG IVPB ONE (21:40)
[2018-09-02 22:10] LABS: Basophils # 0.1 K/mcL (0.0-0.2); Basophils % 0.6 %; Eosinophils # 0.1 K/mcL (0.0-0.6); Eosinophils % 1.5 %; Hematocrit 40.2 % (37.5-50.1); Hemoglobin 13.3 g/dL (12.9-16.9); Immature Granulocytes % 0.5 % (0-4); Lymphocytes % 9.9 %; Mean Corpuscular HGB Conc 33.1 g/dL (31.6-35.5); Mean Corpuscular Hemoglobin 31.9 pg (28.0-33.3); Mean Corpuscular Volume 96.4 fL (83.0-100.0); Mean Platelet Volume 10.2 fL (9.4-12.4); Monocytes # 0.6 K/mcL (0.0-1.3); Monocytes % 6.1 %; Neutrophils # 7.8 K/mcL (1.6-8.9); Platelet Count 344 K/mcL (140-400); Red Blood Count 4.17 M/mcL (4.19-5.50); Red Cell Distribution Width 13.2 % (11.5-14.5); Segmented Neutrophils % 81.4 %
[2018-09-02 22:29] LABS: BUN/Creatinine Ratio 20 (6-26); Blood Urea Nitrogen 25 mg/dL (8-23); Calcium 8.9 mg/dL (8.6-10.3); Carbon Dioxide 27 mEq/L (23-29); Chloride 101 mEq/L (98-107); Glucose 186 mg/dL (70-105); Magnesium 1.5 mg/dL (1.6-2.6); Osmolality,Calculated 295 (280-300); Potassium 3.3 mEq/L (3.5-5.1); Sodium 138 mEq/L (136-145); Troponin I < 0.03 ng/mL (< 0.04); eGFR For Non-African Americans 56 (> 60)
--- NOTE | 2018-09-02 22:31 | Emergency Department Note ---
Disposition Clinical Impression: Ventricular tachycardia, Defibrillator discharge Disposition: Admitted As Inpatient Condition: Good Forms: ED Satisfaction Letter Time of Disposition: 22:32 General Adult HPI - General Chief complaint: ED Arrhythmia/Palpitations Stated complaint: "pace maker firing" Time Seen by Provider: 09/02/18 21:32 Source: patient, EMS Mode of arrival: EMS Limitations: no limitations - History of Present Illness Pain Scale: 0 - Related Data Home Medications Medication Instructions Recorded Confirmed Albuterol Sulfate [Ventolin Hfa] 2 puff IH Q4H PRN 01/14/18 08/17/18 Amiodarone [Cordarone] 200 mg PO BID 01/14/18 08/17/18 Aspirin [Adult Aspirin] 81 mg PO DAILY 01/14/18 08/17/18 Gabapentin [Neurontin] 100 mg PO TID 01/14/18 08/17/18 Tiotropium [Spiriva] 18 mcg IH DAILY 01/14/18 08/17/18 Atorvastatin [Lipitor] 40 mg PO HS 08/17/18 08/17/18 Lisinopril [Zestril] 2.5 mg PO DAILY 08/17/18 08/17/18 Metformin HCl [Metformin ER 500 mg PO DAILY 08/17/18 08/17/18 Osmotic] Metoprolol Succinate [Toprol Xl] 50 mg PO DAILY 08/17/18 08/17/18 Mometasone Furoate [Asmanex Hfa] 2 puff PO BID 08/17/18 08/17/18 Previous Rx's Medication Instructions Recorded Isosorbide MONOnitrate (24 HR) 30 mg PO DAILY #30 tab.er.24h 01/15/18 [Imdur] hydroCHLOROthiazide 25 mg PO DAILY #30 tablet 08/18/18 [Hydrochlorothiazide] Allergies Allergy/AdvReac Type Severity Reaction Status Date / Time No Known Allergies Allergy Verified 08/17/18 09:27 Constitutional: Denies: fever, chills, weakness ENT ED: Denies: dysphagia Cardiovascular: Reports: palpitations. Denies: chest pain, dyspnea on exertion, edema, syncope Respiratory: Denies: cough, dyspnea, sputum production Gastrointestinal: Denies: abdominal pain Genitourinary: Denies: urgency, dysuria Musculoskeletal: Denies: back pain Integumentary: Denies: rash Neurological: Denies: headache Past Medical History - Past Medical History Medical history: Reports: cardiomyopathy, COPD, coronary artery disease, diabetes, hyperlipidemia, hypertension, other Surgical history: Reports: AICD, pacemaker Psychiatric history: Reports: no psych history - Social History Smoking Status: Current every day smoker Smokeless Tobacco Status: No Alcohol use: Reports: none Drug use: Reports: none Physical Exam - General Limitations: no limitations General appearance: alert, in no apparent distress Course Vital Signs Temperature 98.2 F 09/02/18 21:47 Pulse Rate 69 09/02/18 21:47 Respiratory Rate 16 09/02/18 21:47 Blood Pressure 118/67 09/02/18 21:47 O2 Sat by Pulse Oximetry 98 09/02/18 21:47 Temperature 98.2 F 09/02/18 21:47 Pulse Rate 69 09/02/18 21:47 Respiratory Rate 16 09/02/18 21:47 Blood Pressure 118/67 09/02/18 21:47 O2 Sat by Pulse Oximetry 98 09/02/18 21:47 Oxygen Delivery Oxygen Delivery Room Air Medical Decision Making - Lab Data Result diagrams: 09/02/18 21:33 Lab Results 09/02/18 Range/Units 21:33 WBC 9.6 (4.3-11.1) K/mcL RBC 4.17 L (4.19-5.50) M/mcL Hgb 13.3 (12.9-16.9) g/dL Hct 40.2 (37.5-50.1) % MCV 96.4 (83.0-100.0) fL MCH 31.9 (28.0-33.3) pg MCHC 33.1 (31.6-35.5) g/dL RDW 13.2 (11.5-14.5) % Plt Count 344 (140-400) K/mcL MPV 10.2 (9.4-12.4) fL Immature Gran % 0.5 (0-4) % Seg Neutrophils % 81.4 % Lymphocytes % 9.9 % Monocytes % 6.1 % Eosinophils % 1.5 % Basophils % 0.6 % Neutrophils # 7.8 (1.6-8.9) K/mcL Lymphocytes # 1.0 (0.6-4.6) K/mcL Monocytes # 0.6 (0.0-1.3) K/mcL Eosinophils # 0.1 (0.0-0.6) K/mcL Basophils # 0.1 (0.0-0.2) K/mcL Attestation Statement - Attestation Attestation: I examined this patient and my medical decision-making was reviewed with the Resident Physician. I agree with the documented findings, disposition and treatment plan as described except to the extent set forth below. 67 year old male presents to the ED with a defibrillator that has been firing since this morning about 4-5 times and is been experincing a headahe just prior to when the defibrillators fires. Denies chest pain but has been experincing near synope secondary to it. Plan is to interrogate the defibrillator and chest pain workup. He most recently was taken off his amniodarone, we will start an amnio drip as he was experiencei 2-3s runs of Vtach for the squad. ADmit to medicine
[2018-09-02 22:43] LABS: Thyroid Stimulating Hormone 3.095 mcIU/mL (0.340-5.600)
[2018-09-02 22:52] LABS: INR 1.1; Prothrombin Time 12.3 Seconds (9.4-12.1)
[2018-09-02 22:55] LABS: Activated Partial Thrombo Time 34.5 Seconds (26.0-36.0)
[2018-09-03] MEDS ORDERED: *HR* Dextrose 50 % in Water (Syg) 50 ML SYRINGE IVP PRN (00:24)
[2018-09-03] MEDS ORDERED: Dextrose Gel 15 GM/37.5 ML TUBE PO PRN ×2 (00:24)
[2018-09-03] MEDS ORDERED: Ipratropium/Albuterol Neb 3 ML IH PRN (00:51)
--- NOTE | 2018-09-03 00:52 | Internal Med History&Physical ---
Date of Encounter: 09/03/18 Time of Encounter: 00:51 Internal Medicine - H&P: HPI Chief complaint: ICD firing Admitted From: Home Plans for Post Hospital Care: Home History of present illness: Cat Dumont is a 67 year old man with chronic systolic heart failure secondary to nonischemic cardiomyopathy with ICD as well as diabetes, HTN and COPD with ongoing tobacco abuse who presents to the ER complaining of his ICD firing at least 5 to 7 times today stating it started at around 11am. It is stated by EMS that he had multiple episodes of ventricular tachycardia. He reports being out of amiodarone since April and only resumed 2 days. He had some associated chest pain but no dyspnea. He also felt pain go through his back and headache. Labs revealed a K of 3.3 and Mg 1.5. His ICD was interrogated and revealed up to 11 episodes V-tach with the last episode lasting roughly 1 hour. No shocks were received from his defibrillator. He remained on ventricular rhythm. He was started on amiodarone drip and is admitted for further care. There were no further episodes witnessed. Vitals: Reviewed General: Unkempt, elderly male sitting up in bed in NAD Skin: Dry, multiple excoriations on legs, warm. HEENT: Moist mucous membranes. No conjunctivae pallor. Neck: No lymphadenopathy. No JVD. No carotid bruits. No palpable thyroid. Chest: Normal thoracic expansion. Normal breath sounds. Clear to auscultation. Heart: Normal S1 & S2; rhythmic. No rubs or murmurs. Abdomen: Non-distended, soft and non-tender to palpation. No peritoneal reaction. Extremities: No clubbing, cyanosis or edema. No calf tenderness. Normal distal pulses. Neurological: Awake, alert and oriented to person, place and time. No focal deficits. Psych: Affect appropriate. Assessment/Plan 1. ICD management: The patient will require evaluation by cardiology. Will continue amiodarone drip for loading and transition to oral in the morning. Adherence is advised. Continue telemetry monitoring. Will supplement K and Mg as the electrolyte imbalances can be precipitating factors; will need to be rechecked in the morning. 2. Chronic systolic heart failure: Noted to have EF 20% of recent echo. Continue BB, ACEI and furosemide. 3. Hyperlipidemia: On atorvastatin. 4. COPD: Will place on albuterol and daily LABA/ICS. 5 minutes were spent counseling and educating the patient on smoking. child and family services specialist and resources were made available. Past Med Surg Social Fam HX - Past Medical History Medical history: cardiomyopathy, COPD, coronary artery disease, diabetes, hyperlipidemia, hypertension, other Additional medical history: cellulitis BLE, back problems Psychiatric history: no psych history - Past Surgical History Surgical History: AICD, pacemaker Additional surgical history: heart cath, defibrillator - Social History Smoking Status: Current every day smoker Smokeless Tobacco Status: No Alcohol use: none Drug use: none - Family History Father Adopted: No Living Status: Hx Family Cardiac Disorders: Yes (htn, heart trouble, pacemaker) Hx Family Respiratory Disorders: Yes (asthma, COPD) Hx Family Cancer: No Hx Family GI Disorders: No Hx Family Endocrine Disorder: Yes (goiter) Hx Family Neuromuscular Disorders: No Hx Family Neurologic Disorders: No Hx Family HEENT Disorders: No Hx Family Autoimmune Disorders: No Mother Adopted: No Family Member Ethnicity: Non- Living Status: Hx Family Cardiac Disorders: Yes Hx Family Respiratory Disorders: Yes Hx Family Cancer: No Hx Family GI Disorders: No Hx Family Endocrine Disorder: Yes Hx Family Neuromuscular Disorders: No Hx Family Neurologic Disorders: No Hx Family HEENT Disorders: No Hx Family Autoimmune Disorders: No Internal Medicine - H&P: Meds Albuterol Sulfate [Ventolin Hfa] 2 puff IH Q4H PRN 01/14/18 [History] Amiodarone [Cordarone] 200 mg PO BID 01/14/18 [History] Aspirin [Adult Aspirin] 81 mg PO DAILY 01/14/18 [History] Gabapentin [Neurontin] 100 mg PO DAILY 01/14/18 [History] Tiotropium [Spiriva] 18 mcg IH DAILY 01/14/18 [History] Isosorbide MONOnitrate (24 HR) [Imdur] 30 mg PO DAILY #30 tab.er.24h 01/15/18 [Rx] Atorvastatin [Lipitor] 40 mg PO DAILY 08/17/18 [History] Lisinopril [Zestril] 2.5 mg PO DAILY 08/17/18 [History] Metformin HCl [Metformin ER Osmotic] 500 mg PO BID 08/17/18 [History] Metoprolol Succinate [Toprol Xl] 50 mg PO DAILY 08/17/18 [History] Mometasone Furoate [Asmanex Hfa] 2 puff PO BID 08/17/18 [History] hydroCHLOROthiazide [Hydrochlorothiazide] 25 mg PO DAILY #30 tablet 08/18/18 [Rx] Allergy/AdvReac Type Severity Reaction Status Date / Time No Known Allergies Allergy Verified 08/17/18 09:27 All Systems PM: A 10-system review of systems was performed and is negative for pertinent findings except as documented above in the HPI. - Constitutional Vitals: Temp Pulse Resp BP Pulse Ox 98.2 F 69 16 118/67 98 09/02/18 21:47 09/02/18 21:47 09/02/18 21:47 09/02/18 21:47 09/02/18 21:47 Exam: . Internal Med - H&P Results - Labs CBC & Chem 7: 09/02/18 21:33 09/02/18 21:33 Labs: Short CBC 09/02/18 Range/Units 21:33 WBC 9.6 (4.3-11.1) K/mcL Hgb 13.3 (12.9-16.9) g/dL Hct 40.2 (37.5-50.1) % Plt Count 344 (140-400) K/mcL Neutrophils # 7.8 (1.6-8.9) K/mcL BMP 09/02/18 21:33 Sodium 138 Potassium 3.3 L Chloride 101 Carbon Dioxide 27 BUN 25 H Creatinine 1.27 Glucose 186 H Calcium 8.9 Cardiac Enzymes 09/02/18 Range/Units 21:33 Troponin I < 0.03 (< 0.04) ng/mL - Impressions ITS Impressions Chest X-Ray 09/02/18 21:33 IMPRESSION: Stable portable study. D/ / Bina Plummer Cha, MD / Bina Plummer Cha, MD Interpreting Provider: Bina Plummer Cha, MD - Time Spent With Patient Total time spent is greater than 50% in coordination of care (as documented) at patient's floor/unit and/or counseling patient: Greater than 35 minutes
[2018-09-03] MEDS: Insulin LISPRO 300 UNITS/3 ML VIAL SQ SCH ×5 (03:30→20:23)
[2018-09-03] MEDS: Amiodarone Premix 360 MG/200 ML BAG IVC SCH (03:50)
[2018-09-03] MEDS: *HR* Heparin 5,000 UNIT/ML VIAL SQ SCH ×2 (05:02→16:46)
--- NOTE | 2018-09-03 07:29 | Cardiology Consult Note ---
Date of Encounter: 09/03/18 Time of Encounter: 07:30 Assessment and Plan (1) Defibrillator discharge Current Visit: Yes Status: Acute Resume amiodarone with load (400mg po BID today and IV drip). Encouraged medical compliance. After 24 hour load and no further prolonged VT, can go home tomorrow. Appears to be multifactorial from hypoK/mag and no amiodarone. Discharge with amiodarone 200mg po BID x 1 week, then 200mg daily. Additionally Magnesium 400mg po BID and KCl 20meq daily. Repeat CMP in [address] Aleksandr Silva in 2-3 weeks. He will go home on current toprol dose, BP/HR cannot tolerate higher. (2) NSVT (nonsustained ventricular tachycardia) Current Visit: No Status: Acute d/t missing amio doses (3) Hypokalemia Current Visit: No Status: Acute replete to >4, Mag >2 preferably (4) Noncompliance with medication regimen Current Visit: Yes Status: Chronic Discussion w patient/family: The assessment and plan as outlined above was discussed with the patient and/or family members who expressed understanding and agreement. All questions were answered. Thank you for involving us in the care of your patient. Please call with any questions. History of Present Illness Consult date: 09/03/18 Consult reason: VT, ICD shocks Chief complaint: ICD shocks History of present illness: Mr. Dumont is a 67 year old male w history of dilated cardiomyopathy / systolic CHF EF 25% sp BiVICD on amiodarone 2/2 ICD shocks (ran out of amiodarone), CAD presents with fatigue, heaviness over his defibrillator and headaches. He denies otherwise chest/jaw/arm discomfort or syncope. Past Med Surg Social Fam HX - Past Medical History Medical history: cardiomyopathy, CHF, COPD, coronary artery disease, diabetes, hyperlipidemia, hypertension, other Additional medical history: cellulitis BLE, back problems Psychiatric history: no psych history - Past Surgical History Surgical History: pacemaker/AICD Additional surgical history: heart cath - Social History Smoking Status: Current every day smoker Smokeless Tobacco Status: No Alcohol use: none Drug use: none - Family History Father Adopted: No Living Status: Hx Family Cardiac Disorders: Yes (htn, heart trouble, pacemaker) Hx Family Respiratory Disorders: Yes (asthma, COPD) Hx Family Cancer: No Hx Family GI Disorders: No Hx Family Endocrine Disorder: Yes (goiter) Hx Family Neuromuscular Disorders: No Hx Family Neurologic Disorders: No Hx Family HEENT Disorders: No Hx Family Autoimmune Disorders: No Mother Adopted: No Family Member Ethnicity: Non- Living Status: Hx Family Cardiac Disorders: Yes (HTN) Hx Family Respiratory Disorders: Yes Hx Family Cancer: No Hx Family GI Disorders: No Hx Family Endocrine Disorder: Yes (DM) Hx Family Neuromuscular Disorders: Yes (CVA) Hx Family Neurologic Disorders: No Hx Family HEENT Disorders: No Hx Family Autoimmune Disorders: No Medications and Allergies Albuterol Sulfate [Ventolin Hfa] 2 puff IH Q4H PRN 01/14/18 [History] Amiodarone [Cordarone] 200 mg PO BID 01/14/18 [History] Aspirin [Adult Aspirin] 81 mg PO DAILY 01/14/18 [History] Gabapentin [Neurontin] 100 mg PO DAILY 01/14/18 [History] Tiotropium [Spiriva] 18 mcg IH DAILY 01/14/18 [History] Isosorbide MONOnitrate (24 HR) [Imdur] 30 mg PO DAILY #30 tab.er.24h 01/15/18 [Rx] Atorvastatin [Lipitor] 40 mg PO DAILY 08/17/18 [History] Lisinopril [Zestril] 2.5 mg PO DAILY 08/17/18 [History] Metformin HCl [Metformin ER Osmotic] 500 mg PO BID 08/17/18 [History] Metoprolol Succinate [Toprol Xl] 50 mg PO DAILY 08/17/18 [History] Mometasone Furoate [Asmanex Hfa] 2 puff PO BID 08/17/18 [History] hydroCHLOROthiazide [Hydrochlorothiazide] 25 mg PO DAILY #30 tablet 08/18/18 [Rx] Allergy/AdvReac Type Severity Reaction Status Date / Time No Known Allergies Allergy Verified 08/17/18 09:27 All Systems Review: The remainder of the systems were reviewed and are negative - Constitutional Constitutional: no chills, no fever(s) - EENT Eyes: no loss of vision, no pain Nose, mouth and throat: no bleeding gums, no mouth pain - Cardiovascular Cardiovascular: no chest pain at rest, no chest pain with exertion - Respiratory Respiratory: no hemoptysis, no wheezing - Gastrointestinal Gastrointestinal: no hematemesis, no hematochezia - Genitourinary Genitourinary: no hematuria, no nocturia - Musculoskeletal Musculoskeletal: no arthralgias, no myalgias - Integumentary Integumentary: no erythema, no unusual bruising - Neurological Neurological: no syncope, no tingling - Psychiatric Psychiatric: no hallucinations, no panic attacks - Hematological/Lymphatic Hematologic/Lymphatic: no easy bleeding, no easy bruising Physical Examination Vital Signs, Last 4 Hours Pulse BP Pulse Ox 09/03/18 06:00 60 108/66 09/03/18 05:05 59 103/57 09/03/18 04:00 60 103/61 09/03/18 03:37 100 General: Conversant HEENT: Atraumatic Neck: No JVD Cardiac: Reg Rate and Rhythm Lungs: Normal Breath Sounds Neuro: Alert and responsive Abdomen: Soft Skin: No rashes noted on visualized skin Extremities: No Edema Results 09/02/18 21:33 09/03/18 10:35 Lab Results 09/02/18 09/02/18 09/02/18 21:33 21:33 22:24 WBC 9.6 Hgb 13.3 Hct 40.2 Plt Count 344 INR 1.1 APTT 34.5 Sodium 138 Potassium 3.3 L Chloride 101 Carbon Dioxide 27 BUN 25 H Creatinine 1.27 Glucose 186 H Calcium 8.9 Magnesium 1.5 L Troponin I < 0.03 TSH 3.095 - EKG Interpretation EKG results cardiology: personally reviewed, ventricular paced rhythm Consult Discharge Plan - Plan Referrals: NONE,PCP [Primary Care Provider] -
[2018-09-03] MEDS: hydroCHLOROthiazide 25 MG TABLET PO SCH (08:12)
[2018-09-03] MEDS: Magnesium Oxide 400 MG TABLET PO SCH ×2 (08:12→20:22)
[2018-09-03] MEDS: Aspirin Enteric Coated 81 MG Tablet PO SCH (08:12)
[2018-09-03] MEDS: Gabapentin 100 MG CAPSULE PO SCH (08:12)
[2018-09-03] MEDS: Isosorbide MONOnitrate (24 HR) 30 MG TAB.ER.24H PO SCH (08:12)
[2018-09-03] MEDS: *HR* Amiodarone 200 MG TABLET PO SCH ×2 (08:13→20:22)
[2018-09-03] MEDS: Metoprolol XL (24 HR) Succ 50 MG TAB.ER.24H PO SCH (08:13)
[2018-09-03] MEDS ORDERED: *HR* Amiodarone 200 MG TABLET PO SCH (09:00)
--- NOTE | 2018-09-03 09:29 | Internal Med Progress Note ---
Hospitalist Progress Note - Encounter Date of Encounter: 09/03/18 Time of Encounter: 09:26 - Subjective Interval History: I have seen and evaluated the patient at bedside. patient reports he is feeling better today. denies shortness of breath. and reports that his ICD has stopped firing. denies light headedness or dizziness. - Exam Vitals: Temp Pulse Resp BP Pulse Ox 97.6 F 65 18 110/62 99 09/03/18 07:49 09/03/18 07:49 09/03/18 07:49 09/03/18 07:49 09/03/18 07:49 Exam: Vitals: Reviewed General: Alert and oriented x4. In no acute distress Skin: Normal color, no rash, no lesions. HEENT: EOM, pupils equal, round and reactive. Cardiovascular: Irregularly irregular, normal S1 & S2, no rubs, murmurs or gallops. Lungs: CTA b/l, no wheezes or crackles. Abdomen: Soft, non-tender, no rigidity. NABS in all 4 quadrants Extremities:No edema Neurological: Normal cognition and motor skills. Rest of the physical exam is non contributory - Assessment and Plan (1) Defibrillator discharge Current Visit: Yes Status: Acute Assessment and Plan: patient reported not being on his medications for about 3 months. reports he lost his insurance early in April this year. Plan patient on an amiodrarone drip cardiology recommended to start patient on amiodarone 400mg/PO BID on a bb electrolyte replaced. cardiology recommendations appreciated (2) Noncompliance with medication regimen Current Visit: Yes Status: Chronic Assessment and Plan: patient reports not taking his medications because he lost his insurance. (3) CAD (coronary artery disease) Current Visit: No Status: Chronic Assessment and Plan: Patient is on Aspirin 81mg/PO daily (4) Chronic systolic CHF (congestive heart failure) Current Visit: No Status: Chronic Assessment and Plan: estimated E.F of 20%. plan patient on lisinopril and a bb On isosorbide 30 mg by mouth daily On hydrochlorothiazide 25 mg by mouth daily. (5) COPD (chronic obstructive pulmonary disease) Current Visit: No Status: Chronic Assessment and Plan: Chest is clear to auscultation. No wheezing on auscultation. Continue bronchodilators every 4 hours when necessary. Spiriva. (6) DM2 (diabetes mellitus, type 2) Current Visit: No Status: Chronic Assessment and Plan: Blood sugar is well controlled. Patient is on lispro low-dose sliding scale before meals. levemir 5 units hs added (7) HLD (hyperlipidemia) Current Visit: Yes Status: Chronic Assessment and Plan: Patient is on atorvastatin 40 mg by mouth daily. DVT Prophylaxis: On heparin subcutaneous. - Summary of Assessment and Plan Summary of Assessment and Plan: Patient to remain in the hospital on an amiodarone drip. - Time Spent with Patient Total time spent is greater than 50% in coordination of care (as documented) at patient's floor/unit and/or counseling patient: Greater than 35 minutes (40) Plan of Care Discussed with: patient (and the nurse.) Internal Medicine: Result - Labs CBC & Chem 7: 09/02/18 21:33 09/02/18 21:33 Labs: Short CBC 09/02/18 Range/Units 21:33 WBC 9.6 (4.3-11.1) K/mcL Hgb 13.3 (12.9-16.9) g/dL Hct 40.2 (37.5-50.1) % Plt Count 344 (140-400) K/mcL Neutrophils # 7.8 (1.6-8.9) K/mcL BMP 09/02/18 21:33 Sodium 138 Potassium 3.3 L Chloride 101 Carbon Dioxide 27 BUN 25 H Creatinine 1.27 Glucose 186 H Calcium 8.9 Cardiac Enzymes 09/02/18 Range/Units 21:33 Troponin I < 0.03 (< 0.04) ng/mL - ABG Interpretation ABG results: PT/INR, D-dimer PT 12.3 Seconds (9.4-12.1) H 09/02/18 22:24 - Impressions Impressions Chest X-Ray 09/02/18 21:33 IMPRESSION: Stable portable study. D/ / Bina Plummer Cha, MD / Bina Plummer Cha, MD Interpreting Provider: Bina Plummer Cha, MD Consult Discharge Plan - Plan Referrals: NONE,PCP [Primary Care Provider] - (3) CAD (coronary artery disease) Qualifiers: Coronary Disease-Associated Artery/Lesion type: [place] artery [place] vs. transplanted heart: [place] heart Associated angina: angina presence unspecified Qualified Code(s): I25.10 - Atherosclerotic heart disease of [place] coronary artery without angina pectoris (5) COPD (chronic obstructive pulmonary disease) Qualifiers: COPD type: unspecified COPD Qualified Code(s): J44.9 - Chronic obstructive pulmonary disease, unspecified (6) DM2 (diabetes mellitus, type 2) Qualifiers: Diabetes mellitus complication status: with unspecified complications Qualified Code(s): E11.8 - Type 2 diabetes mellitus with unspecified complications (7) HLD (hyperlipidemia) Qualifiers: Hyperlipidemia type: unspecified Qualified Code(s): E78.5 - Hyperlipidemia, unspecified
[2018-09-03] MEDS: MOMETASONE FUROATE 100 mcg Inhaler IH SCH ×2 (10:27→22:07)
[2018-09-03] MEDS: Tiotropium 18 MCG inhalation IH SCH (10:31)
[2018-09-03 11:52] LABS: BUN/Creatinine Ratio 16 (6-26); Blood Urea Nitrogen 20 mg/dL (8-23); Calcium 8.9 mg/dL (8.6-10.3); Carbon Dioxide 27 mEq/L (23-29); Chloride 104 mEq/L (98-107); Glucose 155 mg/dL (70-105); Magnesium 1.6 mg/dL (1.6-2.6); Osmolality,Calculated 290 (280-300); Phosphorous 2.9 mg/dL (2.7-4.5); Potassium 3.8 mEq/L (3.5-5.1); Sodium 137 mEq/L (136-145); eGFR For Non-African Americans 56 (> 60)
[2018-09-03] MEDS: Insulin DETEMIR 100 UNIT/ML X5UNITS SQ SCH (20:22)
[2018-09-04] MEDS: Amiodarone Premix 360 MG/200 ML BAG IVC SCH (04:17)
[2018-09-04] MEDS: *HR* Heparin 5,000 UNIT/ML VIAL SQ SCH ×2 (06:30→17:51)
[2018-09-04] MEDS: Insulin LISPRO 300 UNITS/3 ML VIAL SQ SCH ×4 (07:37→21:35)
[2018-09-04] MEDS: Tiotropium 18 MCG inhalation IH SCH (08:06)
[2018-09-04] MEDS: MOMETASONE FUROATE 100 mcg Inhaler IH SCH ×2 (08:07→20:28)
[2018-09-04] MEDS: Isosorbide MONOnitrate (24 HR) 30 MG TAB.ER.24H PO SCH (08:29)
[2018-09-04] MEDS: Aspirin Enteric Coated 81 MG Tablet PO SCH (08:29)
[2018-09-04] MEDS: *HR* Amiodarone 200 MG TABLET PO SCH ×2 (08:29→21:35)
[2018-09-04] MEDS: Gabapentin 100 MG CAPSULE PO SCH (08:29)
[2018-09-04] MEDS: Metoprolol XL (24 HR) Succ 50 MG TAB.ER.24H PO SCH (08:29)
[2018-09-04] MEDS: hydroCHLOROthiazide 25 MG TABLET PO SCH (08:29)
[2018-09-04] MEDS: Magnesium Oxide 400 MG TABLET PO SCH ×2 (08:29→21:35)
--- NOTE | 2018-09-04 10:50 | Cardiology Progress Note ---
Date of Encounter: 09/04/18 Time of Encounter: 09:20 Assessment and Plan (1) Defibrillator discharge Current Visit: Yes Status: Acute Patient presented with ICD shock. He was found to have PT and device check. Patient noted he ran out of amiodarone in April and recently started 3 days prior to admission. Appears to be multifactorial from hypoK/mag and no amiodarone. During admission he was reloaded with IV amiodarone and oral amiodarone. 12 hour telemetry review shows no recurrent NSVT. AV pacing noted. Occasional PVCs noted. After 48 hours of amiodarone drip patient may be converted to home dose of amiodarone 200 mg twice a day. Encouraged medical compliance. Discharge with amiodarone 200mg po BID x 1 week, then 200mg daily. Additionally KCl 20meq daily. Repeat CMP in [address] Aleksandr Silva in 2-3 weeks. Cardiology will sign off. Out -pt f/u will be coordinated. (2) Ventricular tachycardia Current Visit: Yes Status: Acute (3) Cardiomyopathy Current Visit: No Status: Chronic H/o NICMP with ICD placement in 2015. [facility] with non-obstructive CAD 2014. Currently euvolemic. Chronic systolic CHF. Continue bb and aceI. Low sodium diet and daily weights. Qualifiers: Cardiomyopathy type: unspecified Qualified Code(s): I42.9 - Cardiomyopathy, unspecified Discussion w patient/family: The assessment and plan as outlined above was discussed with the patient and/or family members who expressed understanding and agreement. All questions were answered. Thank you for involving us in the care of your patient. Please call with any questions. Subjective Principal diagnosis: ICD shock Interval history: Patient denies recurrent shot. Denies chest pain. Reports he had a little indigestion last night. Objective Vital Signs, Last 4 Hours Temp Pulse Resp BP Pulse Ox 09/04/18 08:06 18 108/67 97 09/04/18 07:24 98.1 F 59 18 108/67 94 General: Conversant, No Apparent Distress HEENT: Atraumatic, Normocephaly, Mucus Membranes Moist Neck: No JVD, Normal carotid pulses Cardiac: Reg Rate and Rhythm, Normal S1 and S2, No Murmur Lungs: Normal Breath Sounds, No Wheeze, Rales, Rhonchi Neuro: Alert and responsive, No focal deficits noted Abdomen: Soft, Non-Tender Skin: No rashes noted on visualized skin Musculoskeletal: No Chest Wall Tenderness Extremities: No Clubbing, No Cyanosis, No Edema, Normal Pulses Results 09/02/18 21:33 09/03/18 10:35 Lab Results 09/03/18 10:35 Sodium 137 Potassium 3.8 Chloride 104 Carbon Dioxide 27 BUN 20 Creatinine 1.27 Glucose 155 H Calcium 8.9 Magnesium 1.6 - Imaging and Cardiology Echo: report reviewed - EKG Interpretation EKG results cardiology: personally reviewed Consult Discharge Plan - Plan Referrals: NONE,PCP [Primary Care Provider] -
--- NOTE | 2018-09-04 13:10 | Internal Med Progress Note ---
Hospitalist Progress Note - Encounter Date of Encounter: 09/04/18 Time of Encounter: 13:09 - Subjective Interval History: I have seen and evaluated the patient at bedside. patient reports feeling well. denies chest pain, shortness of breath or light headedness. denies firing of his devise. - Exam Vitals: Temp Pulse Resp BP Pulse Ox 97.9 F 59 16 109/68 98 09/04/18 11:21 09/04/18 11:21 09/04/18 11:21 09/04/18 11:21 09/04/18 11:21 Exam: Vitals: Reviewed General: Alert and oriented x4. In no acute distress Cardiovascular: Irregularly irregular, normal S1 & S2, no rubs, murmurs or gallops. Lungs: CTA b/l, no wheezes or crackles. Abdomen: Soft, non-tender, no rigidity. NABS in all 4 quadrants Extremities:No edema Neurological: No focal neurological abnormalities Rest of the physical exam is non contributory - Assessment and Plan (1) Defibrillator discharge Current Visit: Yes Status: Acute Assessment and Plan: no event overnight. no defibrillator firing during his whole hospitalization. Plan titrate amiodrarone drip off cardiology recommendations appreciated amiodarone 200mg/PO BID on a bb continue potassium chloride 20meq/PO daily (2) Noncompliance with medication regimen Current Visit: Yes Status: Chronic (3) CAD (coronary artery disease) Current Visit: No Status: Chronic Assessment and Plan: on aspirin 81mg/PO daily (4) Chronic systolic CHF (congestive heart failure) Current Visit: No Status: Chronic Assessment and Plan: estimated E.F of 20%. plan continue lisinopril and metoprolol, isosorbide 30 mg by mouth daily and hydrochlorothiazide 25 mg by mouth daily. (5) COPD (chronic obstructive pulmonary disease) Current Visit: No Status: Chronic Assessment and Plan: no wheezing on auscultation. continue bronchodilators Q4RT bill, on spiriva. insentive spirometry. (6) DM2 (diabetes mellitus, type 2) Current Visit: No Status: Chronic Assessment and Plan: Blood sugar is well controlled. plan continue lispro low-dose sliding scale before meals. and levemir 5 units hs carbs controlled diet (7) HLD (hyperlipidemia) Current Visit: Yes Status: Chronic Assessment and Plan: atorvastatin 40 mg by mouth daily. DVT Prophylaxis: on heparin subq - Summary of Assessment and Plan Summary of Assessment and Plan: will keep observing the patient for 24 more hours. potential discharge tomorrow - Time Spent with Patient Total time spent is greater than 50% in coordination of care (as documented) at patient's floor/unit and/or counseling patient: Greater than 35 minutes (40) Plan of Care Discussed with: patient (and the nurse.) Internal Medicine: Result - Labs CBC & Chem 7: 09/02/18 21:33 09/03/18 10:35 - ABG Interpretation ABG results: PT/INR, D-dimer PT 12.3 Seconds (9.4-12.1) H 09/02/18 22:24 Consult Discharge Plan - Plan Referrals: NONE,PCP [Primary Care Provider] - (3) CAD (coronary artery disease) Qualifiers: Coronary Disease-Associated Artery/Lesion type: [place] artery [place] vs. transplanted heart: [place] heart Associated angina: angina presence unspecified Qualified Code(s): I25.10 - Atherosclerotic heart disease of [place] coronary artery without angina pectoris (5) COPD (chronic obstructive pulmonary disease) Qualifiers: COPD type: unspecified COPD Qualified Code(s): J44.9 - Chronic obstructive pulmonary disease, unspecified (6) DM2 (diabetes mellitus, type 2) Qualifiers: Diabetes mellitus complication status: with unspecified complications Qualified Code(s): E11.8 - Type 2 diabetes mellitus with unspecified complications (7) HLD (hyperlipidemia) Qualifiers: Hyperlipidemia type: unspecified Qualified Code(s): E78.5 - Hyperlipidemia, unspecified
[2018-09-04] MEDS: Insulin DETEMIR 100 UNIT/ML X5UNITS SQ SCH (21:35)
[2018-09-05] MEDS: *HR* Heparin 5,000 UNIT/ML VIAL SQ SCH (05:33)
[2018-09-05] MEDS: MOMETASONE FUROATE 100 mcg Inhaler IH SCH (07:22)
[2018-09-05] MEDS: Tiotropium 18 MCG inhalation IH SCH (07:22)
[2018-09-05] MEDS: Magnesium Oxide 400 MG TABLET PO SCH (07:57)
[2018-09-05] MEDS: Aspirin Enteric Coated 81 MG Tablet PO SCH (07:57)
[2018-09-05] MEDS: Metoprolol XL (24 HR) Succ 50 MG TAB.ER.24H PO SCH (07:58)
[2018-09-05] MEDS: hydroCHLOROthiazide 25 MG TABLET PO SCH (07:58)
[2018-09-05] MEDS: Insulin LISPRO 300 UNITS/3 ML VIAL SQ SCH ×2 (07:58→11:38)
[2018-09-05] MEDS: Isosorbide MONOnitrate (24 HR) 30 MG TAB.ER.24H PO SCH (07:58)
[2018-09-05] MEDS: Gabapentin 100 MG CAPSULE PO SCH (07:58)
[2018-09-05] MEDS: *HR* Amiodarone 200 MG TABLET PO SCH (07:58)
--- NOTE | 2018-09-05 08:42 | Electrocardiograph Report ---
[address] [place], [place] [address] Test Date: 2018-09-02 Pat Name: Cat Dumont Department: [id number] Room: 2N09 Gender: M [employer] Technician: : 1950 Requested By: Emilio Shipman Order Number: [id number] Reading MD: Ziggy Joy Measurements Intervals [place] Rate: 72 P: [place]: QRS: 258 QRSD: 178 T: 79 QT: 507 QTc: 555 Interpretive Statements A-V dual-paced complexes, A-noncapt due to AF No further analysis attempted due to paced rhythm Electronically Signed On 09-05-2018 8:41:21 EDT by Ziggy Joy
--- NOTE | 2018-09-05 09:03 | Discharge Summary ---
Date of Encounter: 09/05/18 Time of Encounter: 09:03 - Discharge Diagnosis (1) Defibrillator discharge Priority: Primary Status: Resolved (2) Noncompliance with medication regimen Priority: Secondary Status: Chronic (3) CAD (coronary artery disease) Priority: Secondary Status: Chronic Qualifiers: Coronary Disease-Associated Artery/Lesion type: [place] artery [place] vs. transplanted heart: [place] heart Associated angina: angina presence unspecified Qualified Code(s): I25.10 - Atherosclerotic heart disease of [place] coronary artery without angina pectoris (4) Chronic systolic CHF (congestive heart failure) Priority: Secondary Status: Chronic (5) COPD (chronic obstructive pulmonary disease) Priority: Secondary Status: Chronic Qualifiers: COPD type: unspecified COPD Qualified Code(s): J44.9 - Chronic obstructive pulmonary disease, unspecified (6) DM2 (diabetes mellitus, type 2) Priority: Secondary Status: Chronic Qualifiers: Diabetes mellitus complication status: with unspecified complications Qualified Code(s): E11.8 - Type 2 diabetes mellitus with unspecified com plications (7) HLD (hyperlipidemia) Priority: Secondary Status: Chronic Qualifiers: Hyperlipidemia type: unspecified Qualified Code(s): E78.5 - Hyperlipidemia, unspecified Hospital course: Mr. Dumont is a 67 year old male PMH chronic systolic heart failure secondary to nonischemic cardiomyopathy with ICD as well as diabetes, HTN and COPD with ongoing tobacco abuse who presents to the ER complaining of his ICD firing at least 5 to 7 times. His ICD was interrogated and revealed up to 11 episodes V- tach with the last episode lasting roughly 1 hour. No shocks were received from his defibrillator. He was started on amiodarone drip and is admitted for further care. Cardiology consulted. Patient was loaded with amiodarone. His symptoms resolved after being started on the medication. Patient also reported that he was off his medications for a couple for a couple of month. Patient is hemodynamically stable to be discharged. Patient was educated about the importance of being compliant with his medications. - Time Spent with Patient Total time spent providing and/or coordinating discharge services: Time spent: Greater than 30 minutes (35) - Discharge Medications Prescriptions: New Amiodarone HCl 200 mg PO DAILY 30 Days #30 tablet Amiodarone [Cordarone] 200 mg PO BID 7 Days #14 tablet Magnesium Oxide [Mag-Ox] 400 mg PO BID 30 Days #60 tablet Potassium Chloride 20 meq PO DAILY 30 Days #30 tab.er.prt Continued Gabapentin [Neurontin] 100 mg PO DAILY Albuterol Sulfate [Ventolin Hfa] 2 puff IH Q4H PRN PRN Reason: Dyspnea Tiotropium [Spiriva] 18 mcg IH DAILY Aspirin [Adult Aspirin] 81 mg PO DAILY Isosorbide MONOnitrate (24 HR) [Imdur] 30 mg PO DAILY #30 tab.er.24h Atorvastatin [Lipitor] 40 mg PO DAILY Metoprolol Succinate [Toprol Xl] 50 mg PO DAILY Metformin HCl [Metformin ER Osmotic] 500 mg PO BID Mometasone Furoate [Asmanex Hfa] 2 puff PO BID Lisinopril [Zestril] 2.5 mg PO DAILY hydroCHLOROthiazide [Hydrochlorothiazide] 25 mg PO DAILY #30 tablet Discontinued Amiodarone [Cordarone] 200 mg PO BID Home Medications: Albuterol Sulfate [Ventolin Hfa] 2 puff IH Q4H PRN 01/14/18 [History] Aspirin [Adult Aspirin] 81 mg PO DAILY 01/14/18 [History] Gabapentin [Neurontin] 100 mg PO DAILY 01/14/18 [History] Tiotropium [Spiriva] 18 mcg IH DAILY 01/14/18 [History] Isosorbide MONOnitrate (24 HR) [Imdur] 30 mg PO DAILY #30 tab.er.24h 01/15/18 [Rx] Atorvastatin [Lipitor] 40 mg PO DAILY 08/17/18 [History] Lisinopril [Zestril] 2.5 mg PO DAILY 08/17/18 [History] Metformin HCl [Metformin ER Osmotic] 500 mg PO BID 08/17/18 [History] Metoprolol Succinate [Toprol Xl] 50 mg PO DAILY 08/17/18 [History] Mometasone Furoate [Asmanex Hfa] 2 puff PO BID 08/17/18 [History] hydroCHLOROthiazide [Hydrochlorothiazide] 25 mg PO DAILY #30 tablet 08/18/18 [Rx] Amiodarone HCl 200 mg PO DAILY 30 Days #30 tablet 09/05/18 [Rx] Amiodarone [Cordarone] 200 mg PO BID 7 Days #14 tablet 09/05/18 [Rx] Magnesium Oxide [Mag-Ox] 400 mg PO BID 30 Days #60 tablet 09/05/18 [Rx] Potassium Chloride 20 meq PO DAILY 30 Days #30 tab.er.prt 09/05/18 [Rx] Allergies/Adverse Reactions: Allergy/AdvReac Type Severity Reaction Status Date / Time No Known Allergies Allergy Verified 08/17/18 09:27 Date of admission: 09/03/18 02:37 Primary care physician: PCP NONE Consults: 09/03/18 00:22 Consult to Cardiology [CONS] Routine Comment: Consulting Provider: Cardiology Joana Reason for Consult: Patient admitted for AICD firing multiple times Call Completed: No 09/04/18 12:52 Consult to Air Control/Anti Air Warfare Officer [CONS] Routine Reason for SW Consult: patient might need help getting medication fill - Constitutional Vitals: Temp Pulse Resp BP Pulse Ox 98.0 F 64 16 112/62 98 09/05/18 07:08 09/05/18 08:09 09/05/18 07:22 09/05/18 07:08 09/05/18 07:22 Exam: Vitals: Reviewed General: Alert and oriented x4. In no acute distress Cardiovascular: Irregularly irregular, normal S1 & S2, no rubs, murmurs or gallops. Lungs: CTA b/l, no wheezes or crackles. Abdomen: Soft, non-tender, no rigidity. NABS in all 4 quadrants Extremities: No edema Neurological: No focal neurological abnormalities Rest of the physical exam is non contributory - Patient Status Disposition: Home Health Service Condition: Good Functional capacity at discharge: uses cane/walker Overall status at discharge: patient is back to baseline - Discharge Instructions Follow Up With: NONE,PCP [Primary Care Provider] - - Diet and Activity Activity: resume usual activities as tolerated Diet: diabetic diet, low salt diet
[2018-09-05 11:35] VITALS: BP 94/54
== END 2018-09-05 14:19 | disposition home health service (06) | DRG 201 ==
LOC: EMEROOARM 21:28 → 2NNU 09-03 02:37
PROVIDERS: ADMIT Family Medicine; ATTEND Family Medicine

== ENCOUNTER 2020-04-19 22:28 | Observation (INO) ==
[2020-04-19] MEDS ORDERED: Isovue-370 500 ML BOTTLE IVP ONE (22:35)
[2020-04-19 22:57] LABS: Basophils % 0.2 %; Eosinophils # 0.1 K/mcL (0.0-0.6); Eosinophils % 0.8 %; Hematocrit 41.6 % (37.5-50.1); Hemoglobin 13.6 g/dL (12.9-16.9); Immature Granulocytes % 0.5 % (0-4); Lymphocytes % 5.7 %; Mean Corpuscular HGB Conc 32.7 g/dL (31.6-35.5); Mean Corpuscular Volume 94.8 fL (83.0-100.0); Mean Platelet Volume 10.7 fL (9.4-12.4); Monocytes # 1.3 K/mcL (0.0-1.3); Monocytes % 7.8 %; Neutrophils # 14.1 K/mcL (1.6-8.9); Platelet Count 272 K/mcL (140-400); Red Blood Count 4.39 M/mcL (4.19-5.50); Red Cell Distribution Width 13.2 % (11.5-14.5); White Blood Count 16.6 K/mcL (4.3-11.1)
[2020-04-19 23:04] LABS: INR 1.2; Prothrombin Time 14.2 Seconds (9.4-12.1)
[2020-04-19 23:27] LABS: Alanine Aminotransferase 9 Units/L (7-52); Albumin 3.9 g/dL (3.5-5.7); Albumin/Globulin Ratio 1.4 (1.1-2.2); Alkaline Phosphatase 116 Units/L (34-104); Aspartate Amino Transferase 11 Units/L (13-39); BUN/Creatinine Ratio 18 (6-26); Bilirubin,Direct 0.2 mg/dL (0.0-0.2); Blood Urea Nitrogen 22 mg/dL (8-23); Carbon Dioxide 29 mEq/L (23-29); Chloride 94 mEq/L (98-107); Globulin 2.8 g/dL (2.4-3.5); Glucose 321 mg/dL (70-105); Lipase 53 Units/L (11-82); Osmolality,Calculated 290 (280-300); Potassium 3.8 mEq/L (3.5-5.1); Sodium 132 mEq/L (136-145); Total Protein 6.7 g/dL (6.4-8.9); Troponin I 0.04 ng/mL (< 0.04); eGFR For African Americans > 60 (> 60); eGFR For Non-African Americans > 60 (> 60)
[2020-04-19] MEDS ORDERED: Nitroglycerin 0.4 MG TAB.SUBL SL SCH (23:30)
[2020-04-19] MEDS ORDERED: Nitroglycerin 0.4 MG TAB.SUBL SL PRN (23:30)
[2020-04-19 23:44] LABS: Bacteria,Urine Few per hpf (None-Few); Bilirubin,Urine Negative (Negative); Blood,Urine Negative (Negative); Clarity,Urine Clear (Clear); Color,Urine Yellow (Yellow); Glucose,Urine (UA) >=1000 mg/dL (Normal); Ketones,Urine Negative (Negative); Leukocyte Esterase,Urine Negative (Negative); Mucus,Urine Few per lpf (None-Few); Nitrite,Urine Negative (Negative); Protein,Urine 50 mg/dL (Neg-Trace); RBC,Urine 0-3 per hpf (0-3); Specific Gravity,Urine > 1.030 (1.010-1.025); Uric Acid Crystals,Urine Present; WBC,Urine 0-3 per hpf (0-3)
[2020-04-20 00:42] LABS: Bilirubin,Total 1.2 mg/dL (0.3-1.0)
[2020-04-20] MEDS ORDERED: Naloxone 0.4 MG/ML INJ IVP PRN (02:44)
[2020-04-20] MEDS ORDERED: Acetaminophen 325 MG TABLET PO PRN (02:44)
[2020-04-20] MEDS ORDERED: Ondansetron ODT 4 MG TAB.RAPDIS SL PRN (02:44)
[2020-04-20] MEDS ORDERED: D5% in Water 1,000 ML IVC PRN (02:47)
[2020-04-20] MEDS ORDERED: *HR* Dextrose 50 % in Water (Vial) 50 ML VIAL IVP PRN (02:47)
[2020-04-20] MEDS ORDERED: Dextrose Gel 15 GM/37.5 ML TUBE PO PRN ×2 (02:47)
[2020-04-20] MEDS ORDERED: Perflutren Lipid Microsphere 1.3 ML in 0.9 % Sodium Chloride 8.7 ML IVP PRN (02:51)
[2020-04-20 03:34] LABS: Hematocrit 42.8 % (37.5-50.1); Hemoglobin 13.8 g/dL (12.9-16.9); Mean Corpuscular HGB Conc 32.2 g/dL (31.6-35.5); Mean Corpuscular Hemoglobin 30.7 pg (28.0-33.3); Mean Corpuscular Volume 95.3 fL (83.0-100.0); Mean Platelet Volume 10.6 fL (9.4-12.4); Platelet Count 275 K/mcL (140-400); Red Blood Count 4.49 M/mcL (4.19-5.50); Red Cell Distribution Width 13.2 % (11.5-14.5); White Blood Count 15.4 K/mcL (4.3-11.1)
[2020-04-20 03:50] LABS: BUN/Creatinine Ratio 19 (6-26); Blood Urea Nitrogen 21 mg/dL (8-23); Calcium 9.3 mg/dL (8.6-10.3); Carbon Dioxide 33 mEq/L (23-29); Chloride 95 mEq/L (98-107); Glucose 232 mg/dL (70-105); Osmolality,Calculated 290 (280-300); Potassium 3.3 mEq/L (3.5-5.1); Sodium 135 mEq/L (136-145); eGFR For African Americans > 60 (> 60); eGFR For Non-African Americans > 60 (> 60)
[2020-04-20 03:56] LABS: Magnesium 1.5 mg/dL (1.6-2.6); Phosphorous 2.6 mg/dL (2.7-4.5)
[2020-04-20] MEDS: *HR* Heparin 5,000 UNIT/ML VIAL SQ SCH ×2 (06:59→17:17)
[2020-04-20] MEDS ORDERED: Potassium Phosphate 44 MEQ in 0.9 % Sodium Chloride 250 ML IVPB ONE (08:10)
[2020-04-20] MEDS: Aspirin Enteric Coated 81 MG Tablet PO SCH (08:12)
[2020-04-20] MEDS: cefTRIAXone 1,000 MG in Water for inj. (sterile) 10 ML IVP SCH (08:12)
[2020-04-20] MEDS: Insulin LISPRO 300 UNITS/3 ML VIAL SUBQ SCH ×4 (08:13→22:50)
[2020-04-20] MEDS: Tiotropium 10 INH DOSE IH SCH (10:23)
[2020-04-20] MEDS: *HR* Amiodarone 200 MG TABLET PO SCH (11:16)
[2020-04-20] MEDS: lisinopriL 5 MG TABLET PO SCH (11:16)
[2020-04-20] MEDS: Metoprolol XL (24 HR) Succ 50 MG TAB.ER.24H PO SCH (11:16)
[2020-04-20] MEDS: Insulin DETEMIR 100 UNIT/ML X5UNITS SUBQ SCH (22:52)
[2020-04-21 02:33] LABS: Basophils % 0.4 %; Eosinophils # 0.5 K/mcL (0.0-0.6); Eosinophils % 4.4 %; Hematocrit 42.4 % (37.5-50.1); Hemoglobin 13.8 g/dL (12.9-16.9); Immature Granulocytes % 0.6 % (0-4); Lymphocytes # 1.5 K/mcL (0.6-4.6); Lymphocytes % 13.1 %; Mean Corpuscular HGB Conc 32.5 g/dL (31.6-35.5); Mean Corpuscular Hemoglobin 31.7 pg (28.0-33.3); Mean Corpuscular Volume 97.5 fL (83.0-100.0); Mean Platelet Volume 10.9 fL (9.4-12.4); Monocytes # 0.8 K/mcL (0.0-1.3); Monocytes % 7.1 %; Neutrophils # 8.4 K/mcL (1.6-8.9); Platelet Count 283 K/mcL (140-400); Red Blood Count 4.35 M/mcL (4.19-5.50); Red Cell Distribution Width 13.3 % (11.5-14.5); Segmented Neutrophils % 74.4 %; White Blood Count 11.3 K/mcL (4.3-11.1)
[2020-04-21 02:52] LABS: BUN/Creatinine Ratio 22 (6-26); Blood Urea Nitrogen 24 mg/dL (8-23); Carbon Dioxide 29 mEq/L (23-29); Chloride 99 mEq/L (98-107); Glucose 215 mg/dL (70-105); Magnesium 1.9 mg/dL (1.6-2.6); Osmolality,Calculated 291 (280-300); Potassium 3.8 mEq/L (3.5-5.1); Sodium 135 mEq/L (136-145); eGFR For African Americans > 60 (> 60); eGFR For Non-African Americans > 60 (> 60)
[2020-04-21] MEDS: *HR* Heparin 5,000 UNIT/ML VIAL SQ SCH ×2 (05:36→16:15)
[2020-04-21] MEDS: cefTRIAXone 1,000 MG in Water for inj. (sterile) 10 ML IVP SCH (07:58)
[2020-04-21] MEDS: lisinopriL 5 MG TABLET PO SCH (07:58)
[2020-04-21] MEDS: *HR* Amiodarone 200 MG TABLET PO SCH (07:58)
[2020-04-21] MEDS: Metoprolol XL (24 HR) Succ 50 MG TAB.ER.24H PO SCH (07:59)
[2020-04-21] MEDS: Aspirin Enteric Coated 81 MG Tablet PO SCH (07:59)
[2020-04-21] MEDS: Insulin LISPRO 300 UNITS/3 ML VIAL SUBQ SCH ×4 (08:01→20:07)
[2020-04-21] MEDS: Tiotropium 10 INH DOSE IH SCH (08:34)
[2020-04-21] MEDS: Gabapentin 100 MG CAPSULE PO SCH (20:11)
[2020-04-21] MEDS: Insulin DETEMIR 100 UNIT/ML X5UNITS SUBQ SCH (20:11)
[2020-04-21] MEDS ORDERED: MOMETASONE FUROATE IH SCH (21:00)
[2020-04-22 02:40] LABS: Basophils % 0.3 %; Eosinophils # 0.5 K/mcL (0.0-0.6); Eosinophils % 5.4 %; Hematocrit 39.3 % (37.5-50.1); Hemoglobin 12.6 g/dL (12.9-16.9); Immature Granulocytes % 0.8 % (0-4); Lymphocytes # 1.5 K/mcL (0.6-4.6); Lymphocytes % 15.8 %; Mean Corpuscular HGB Conc 32.1 g/dL (31.6-35.5); Mean Corpuscular Hemoglobin 31.5 pg (28.0-33.3); Mean Corpuscular Volume 98.3 fL (83.0-100.0); Mean Platelet Volume 10.5 fL (9.4-12.4); Monocytes # 0.6 K/mcL (0.0-1.3); Monocytes % 6.3 %; Neutrophils # 6.7 K/mcL (1.6-8.9); Platelet Count 258 K/mcL (140-400); Red Cell Distribution Width 13.2 % (11.5-14.5); Segmented Neutrophils % 71.4 %; White Blood Count 9.3 K/mcL (4.3-11.1)
[2020-04-22 03:01] LABS: BUN/Creatinine Ratio 25 (6-26); Blood Urea Nitrogen 29 mg/dL (8-23); Calcium 8.7 mg/dL (8.6-10.3); Carbon Dioxide 26 mEq/L (23-29); Chloride 100 mEq/L (98-107); Glucose 338 mg/dL (70-105); Magnesium 1.7 mg/dL (1.6-2.6); Osmolality,Calculated 295 (280-300); Phosphorous 2.6 mg/dL (2.7-4.5); Potassium 4.3 mEq/L (3.5-5.1); Sodium 133 mEq/L (136-145); eGFR For African Americans > 60 (> 60); eGFR For Non-African Americans > 60 (> 60)
[2020-04-22] MEDS: *HR* Heparin 5,000 UNIT/ML VIAL SQ SCH ×2 (06:24→16:59)
[2020-04-22] MEDS: hydroCHLOROthiazide 25 MG TABLET PO SCH (07:52)
[2020-04-22] MEDS: *HR* Amiodarone 200 MG TABLET PO SCH (07:52)
[2020-04-22] MEDS: Gabapentin 100 MG CAPSULE PO SCH ×3 (07:52→20:52)
[2020-04-22] MEDS: lisinopriL 5 MG TABLET PO SCH (07:52)
[2020-04-22] MEDS: Aspirin Enteric Coated 81 MG Tablet PO SCH (07:52)
[2020-04-22] MEDS: Isosorbide MONOnitrate (24 HR) 30 MG TAB.ER.24H PO SCH (07:52)
[2020-04-22] MEDS: Metoprolol XL (24 HR) Succ 50 MG TAB.ER.24H PO SCH (07:52)
[2020-04-22] MEDS: Furosemide 20 MG TABLET PO SCH (07:52)
[2020-04-22] MEDS: Insulin LISPRO 300 UNITS/3 ML VIAL SUBQ SCH ×4 (07:53→20:50)
[2020-04-22] MEDS: Tiotropium 10 INH DOSE IH SCH (09:27)
[2020-04-22] MEDS: Insulin DETEMIR 100 UNIT/ML X5UNITS SUBQ SCH (20:52)
[2020-04-23] MEDS: *HR* Heparin 5,000 UNIT/ML VIAL SQ SCH (06:28)
[2020-04-23 06:30] LABS: Basophils % 0.5 %; Eosinophils # 0.5 K/mcL (0.0-0.6); Hematocrit 39.4 % (37.5-50.1); Hemoglobin 12.8 g/dL (12.9-16.9); Immature Granulocytes % 0.6 % (0-4); Lymphocytes # 1.5 K/mcL (0.6-4.6); Lymphocytes % 18.1 %; Mean Corpuscular HGB Conc 32.5 g/dL (31.6-35.5); Mean Corpuscular Hemoglobin 31.3 pg (28.0-33.3); Mean Corpuscular Volume 96.3 fL (83.0-100.0); Mean Platelet Volume 10.6 fL (9.4-12.4); Monocytes # 0.5 K/mcL (0.0-1.3); Neutrophils # 5.5 K/mcL (1.6-8.9); Platelet Count 301 K/mcL (140-400); Red Blood Count 4.09 M/mcL (4.19-5.50); Red Cell Distribution Width 13.2 % (11.5-14.5); Segmented Neutrophils % 68.8 %
[2020-04-23 07:01] LABS: BUN/Creatinine Ratio 23 (6-26); Blood Urea Nitrogen 25 mg/dL (8-23); Calcium 9.1 mg/dL (8.6-10.3); Carbon Dioxide 25 mEq/L (23-29); Chloride 101 mEq/L (98-107); Glucose 208 mg/dL (70-105); Magnesium 1.6 mg/dL (1.6-2.6); Osmolality,Calculated 290 (280-300); Phosphorous 2.8 mg/dL (2.7-4.5); Sodium 135 mEq/L (136-145); eGFR For African Americans > 60 (> 60); eGFR For Non-African Americans > 60 (> 60)
[2020-04-23] MEDS: hydroCHLOROthiazide 25 MG TABLET PO SCH (07:12)
[2020-04-23] MEDS: Furosemide 20 MG TABLET PO SCH (07:12)
[2020-04-23] MEDS: lisinopriL 5 MG TABLET PO SCH (07:13)
[2020-04-23] MEDS: Gabapentin 100 MG CAPSULE PO SCH (07:13)
[2020-04-23] MEDS: Aspirin Enteric Coated 81 MG Tablet PO SCH (07:13)
[2020-04-23] MEDS: Isosorbide MONOnitrate (24 HR) 30 MG TAB.ER.24H PO SCH (07:13)
[2020-04-23] MEDS: *HR* Amiodarone 200 MG TABLET PO SCH (07:13)
[2020-04-23] MEDS: Metoprolol XL (24 HR) Succ 50 MG TAB.ER.24H PO SCH (07:13)
[2020-04-23] MEDS: Insulin LISPRO 300 UNITS/3 ML VIAL SUBQ SCH (07:15)
[2020-04-23] MEDS: Tiotropium 10 INH DOSE IH SCH (07:36)
[2020-04-23 08:50] VITALS: BP 130/80
[2020-04-24 22:28] LABS: Lambda Qnt Free Light Chains 20.97 mg/L (5.71-26.30)
[2020-04-25 06:51] LABS: Alpha 2 Globulin (PEP) 0.94 g/dL (0.48-1.05); Beta Globulin (PEP) 0.74 g/dL (0.48-1.10); Kappa Qnt Free Light Chains 20.37 mg/L (3.30-19.40)
[2020-04-25 06:57] LABS: IFE Reflexed NOT DONE
== END 2020-04-23 12:50 | disposition home or self-care (01) ==
LOC: 3ANU 22:28 → EMEROOARM 22:28 → SUATTDRO 04-20 01:32 → 3ANU 04-20 02:22
PROVIDERS: ADMIT Student in an Organized Health Care Education/Training Program; ATTEND Family Medicine

== ENCOUNTER 2021-11-19 11:04 | Observation (INO) ==
[2021-11-19] MEDS ORDERED: Ipratropium/Albuterol Neb 3 ML IH ONE (11:12)
[2021-11-19 11:51] LABS: Basophils % 0.4 %; Eosinophils # 0.4 K/mcL (0.0-0.6); Eosinophils % 5.4 %; Hematocrit 35.8 % (37.5-50.1); Hemoglobin 11.7 g/dL (12.9-16.9); Immature Granulocytes % 0.5 % (0-4); Lymphocytes # 1.3 K/mcL (0.6-4.6); Lymphocytes % 16.9 %; Mean Corpuscular HGB Conc 32.7 g/dL (31.6-35.5); Mean Corpuscular Hemoglobin 31.5 pg (28.0-33.3); Mean Corpuscular Volume 96.5 fL (83.0-100.0); Mean Platelet Volume 10.1 fL (9.4-12.4); Monocytes # 0.5 K/mcL (0.0-1.3); Monocytes % 6.7 %; Neutrophils # 5.6 K/mcL (1.6-8.9); Platelet Count 246 K/mcL (140-400); Red Blood Count 3.71 M/mcL (4.19-5.50); Red Cell Distribution Width 13.7 % (11.5-14.5); Segmented Neutrophils % 70.1 %; White Blood Count 7.9 K/mcL (4.3-11.1)
[2021-11-19 12:02] LABS: INR 1.1; Prothrombin Time 12.3 Seconds (9.4-12.1)
[2021-11-19 12:04] LABS: Activated Partial Thrombo Time 28.4 Seconds (26.0-36.0)
[2021-11-19 12:18] LABS: Albumin 3.5 g/dL (3.5-5.7); Albumin/Globulin Ratio 1.4 (1.1-2.2); Bilirubin,Direct 0.2 mg/dL (0.0-0.2); Bilirubin,Indirect 0.5 mg/dL (0.0-1.0); Bilirubin,Total 0.7 mg/dL (0.3-1.0); Calcium 8.6 mg/dL (8.6-10.3); Globulin 2.5 g/dL (2.4-3.5); Potassium 3.7 mEq/L (3.5-5.1); Troponin I 0.04 ng/mL (< 0.04)
[2021-11-19] MEDS ORDERED: Aspirin 81 MG TAB.CHEW PO STA (12:19)
[2021-11-19] MEDS ORDERED: D5% in Water 1,000 ML IVC PRN (13:18)
[2021-11-19] MEDS ORDERED: Mag Hydrox/Al Hydrox/Simeth 30 ML UDC PO PRN (13:18)
[2021-11-19] MEDS ORDERED: *HR* Dextrose 50 % in Water (Syg) 50 ML SYRINGE IVP PRN (13:18)
[2021-11-19] MEDS ORDERED: Acetaminophen 325 MG TABLET PO PRN (13:18)
[2021-11-19] MEDS ORDERED: Ondansetron 4 MG/2 ML VIAL IVP PRN (13:18)
[2021-11-19] MEDS ORDERED: Naloxone 0.4 MG/ML INJ IVP PRN (13:18)
[2021-11-19] MEDS ORDERED: MOM Conc 10 ML UD.LIQ PO PRN (13:18)
[2021-11-19] MEDS ORDERED: Dextrose Gel 15 GM/37.5 ML TUBE PO PRN ×2 (13:18)
[2021-11-19] MEDS ORDERED: Albuterol 2.5 MG/3 ML NEBULIZER IH PRN (15:47)
[2021-11-19] MEDS: Insulin LISPRO 300 UNITS/3 ML VIAL SUBQ SCH ×2 (17:07→21:24)
[2021-11-19] MEDS: Gabapentin 100 MG CAPSULE PO SCH (21:23)
[2021-11-19] MEDS: Insulin DETEMIR 100 UNIT/ML X5UNITS SUBQ SCH (21:23)
[2021-11-20 02:52] LABS: Hematocrit 37.1 % (37.5-50.1); Mean Corpuscular HGB Conc 32.3 g/dL (31.6-35.5); Mean Corpuscular Hemoglobin 31.3 pg (28.0-33.3); Mean Corpuscular Volume 96.6 fL (83.0-100.0); Mean Platelet Volume 10.2 fL (9.4-12.4); Platelet Count 256 K/mcL (140-400); Red Blood Count 3.84 M/mcL (4.19-5.50); Red Cell Distribution Width 13.8 % (11.5-14.5)
[2021-11-20 03:28] LABS: Albumin 3.4 g/dL (3.5-5.7); Albumin/Globulin Ratio 1.5 (1.1-2.2); Bilirubin,Total 0.4 mg/dL (0.3-1.0); Calcium 8.5 mg/dL (8.6-10.3); Chol/HDL Ratio 2.5 (0-4.9); Globulin 2.3 g/dL (2.4-3.5); Magnesium 1.4 mg/dL (1.6-2.6); Potassium 3.6 mEq/L (3.5-5.1); Total Protein 5.7 g/dL (6.4-8.9)
[2021-11-20 04:40] LABS: Estimated Average Glucose 258 mg/dl; Hemoglobin A1C 10.6 %
[2021-11-20] MEDS ORDERED: Regadenoson 0.4 MG/5 ML SYRINGE IVP ONE (06:25)
[2021-11-20] MEDS: Insulin LISPRO 300 UNITS/3 ML VIAL SUBQ SCH ×4 (07:42→22:48)
[2021-11-20] MEDS ORDERED: Furosemide 40 MG/4 ML VIAL IVP SCH (09:00)
[2021-11-20] MEDS: Tiotropium 10 INH DOSE IH SCH (11:04)
[2021-11-20] MEDS: Spironolactone 12.5 MG TABLET PO SCH (11:32)
[2021-11-20] MEDS: Metoprolol XL (24 HR) Succ 50 MG TAB.ER.24H PO SCH (11:38)
[2021-11-20] MEDS: Isosorbide MONOnitrate (24 HR) 30 MG TAB.ER.24H PO SCH (11:39)
[2021-11-20] MEDS: *HR* Amiodarone 200 MG TABLET PO SCH (11:39)
[2021-11-20] MEDS: lisinopriL 5 MG TABLET PO SCH (11:39)
[2021-11-20] MEDS: Aspirin Enteric Coated 81 MG Tablet PO SCH (11:39)
[2021-11-20] MEDS: Gabapentin 100 MG CAPSULE PO SCH ×3 (11:39→22:48)
[2021-11-20] MEDS: *HR* Heparin 5,000 UNIT/ML VIAL SQ SCH (16:55)
[2021-11-20] MEDS: Insulin DETEMIR 100 UNIT/ML X5UNITS SUBQ SCH (22:48)
[2021-11-21 01:52] LABS: Basophils % 0.4 %; Eosinophils # 0.4 K/mcL (0.0-0.6); Eosinophils % 4.8 %; Hematocrit 36.9 % (37.5-50.1); Hemoglobin 11.8 g/dL (12.9-16.9); Immature Granulocytes % 0.7 % (0-4); Lymphocytes # 1.2 K/mcL (0.6-4.6); Lymphocytes % 14.6 %; Mean Corpuscular Hemoglobin 31.1 pg (28.0-33.3); Mean Corpuscular Volume 97.1 fL (83.0-100.0); Mean Platelet Volume 10.3 fL (9.4-12.4); Monocytes # 0.5 K/mcL (0.0-1.3); Monocytes % 5.6 %; Platelet Count 280 K/mcL (140-400); Red Cell Distribution Width 13.8 % (11.5-14.5); Segmented Neutrophils % 73.9 %; White Blood Count 8.1 K/mcL (4.3-11.1)
[2021-11-21 02:01] LABS: Calcium 8.3 mg/dL (8.6-10.3); Magnesium 1.9 mg/dL (1.6-2.6); Phosphorous 3.5 mg/dL (2.7-4.5); Potassium 3.9 mEq/L (3.5-5.1)
[2021-11-21] MEDS: *HR* Heparin 5,000 UNIT/ML VIAL SQ SCH ×2 (05:45→17:02)
[2021-11-21] MEDS: Insulin LISPRO 300 UNITS/3 ML VIAL SUBQ SCH ×4 (08:32→20:58)
[2021-11-21] MEDS: *HR* Amiodarone 200 MG TABLET PO SCH (08:42)
[2021-11-21] MEDS: Gabapentin 100 MG CAPSULE PO SCH ×3 (08:42→20:57)
[2021-11-21] MEDS: lisinopriL 5 MG TABLET PO SCH (08:42)
[2021-11-21] MEDS: Spironolactone 12.5 MG TABLET PO SCH (08:42)
[2021-11-21] MEDS: Metoprolol XL (24 HR) Succ 50 MG TAB.ER.24H PO SCH (08:43)
[2021-11-21] MEDS: Furosemide 20 MG TABLET PO SCH (08:43)
[2021-11-21] MEDS: Isosorbide MONOnitrate (24 HR) 30 MG TAB.ER.24H PO SCH (08:43)
[2021-11-21] MEDS: Aspirin Enteric Coated 81 MG Tablet PO SCH (08:43)
[2021-11-21] MEDS: Tiotropium 10 INH DOSE IH SCH (10:44)
[2021-11-21] MEDS ORDERED: *HR* Midazolam HCl 2 MG/2 ML VIAL ONE (12:51)
[2021-11-21] MEDS ORDERED: *HR* FentaNYL (PF) 100 MCG/2 ML VIAL ONE (12:51)
[2021-11-21] MEDS ORDERED: Nitroglycerin 1,000 MCG/5 ML VIAL IV ONE (12:52)
[2021-11-21] MEDS ORDERED: Iopamidol - 370 200 ML INFUS..BTL ONE (12:52)
[2021-11-21] MEDS ORDERED: *HR* Heparin 10,000 UNIT/10 ML VIAL ONE (12:52)
[2021-11-21] MEDS ORDERED: 0.9 % Sodium Chloride 1,000 ML ONE (12:52)
[2021-11-21] MEDS ORDERED: Heparin 1,000 UNITS/500 mL 500 ML ONE (12:52)
[2021-11-21] MEDS: Insulin DETEMIR 100 UNIT/ML X5UNITS SUBQ SCH (20:59)
[2021-11-22] MEDS: *HR* Heparin 5,000 UNIT/ML VIAL SQ SCH (06:17)
[2021-11-22 07:06] VITALS: PULSE 60
[2021-11-22] MEDS: Insulin LISPRO 300 UNITS/3 ML VIAL SUBQ SCH ×2 (09:23→12:00)
[2021-11-22] MEDS: Gabapentin 100 MG CAPSULE PO SCH (09:46)
[2021-11-22] MEDS: Spironolactone 12.5 MG TABLET PO SCH (09:46)
[2021-11-22] MEDS: *HR* Amiodarone 200 MG TABLET PO SCH (09:46)
[2021-11-22] MEDS: Furosemide 20 MG TABLET PO SCH (09:46)
[2021-11-22] MEDS: Metoprolol XL (24 HR) Succ 50 MG TAB.ER.24H PO SCH (09:46)
[2021-11-22] MEDS: Aspirin Enteric Coated 81 MG Tablet PO SCH (09:47)
[2021-11-22] MEDS: lisinopriL 5 MG TABLET PO SCH (09:47)
[2021-11-22] MEDS: Isosorbide MONOnitrate (24 HR) 30 MG TAB.ER.24H PO SCH (09:47)
[2021-11-22 10:41] VITALS: BP 119/68; O2SAT 92
[2021-11-22 10:46] VITALS: TEMP 98
[2021-11-22] MEDS: Tiotropium 10 INH DOSE IH SCH (11:28)
== END 2021-11-22 13:22 | disposition home or self-care (01) ==
LOC: 3BNU 11:04 → EMEROOARM 11:04 → SUATTDRO 15:17 → 3BNU 16:04
PROVIDERS: ADMIT Internal Medicine; ATTEND Internal Medicine